=== PATIENT | female | born 1945 | race Caucasian/White ===

== ENCOUNTER 2021-07-21 16:11 | Inpatient (IN) ==
[2021-07-21 18:24] LABS: Basophils % 0.3 %; Eosinophils % 0.2 %; Hematocrit 34.3 % (35.3-44.9); Hemoglobin 10.6 g/dL (11.5-15.4); Immature Granulocytes % 0.6 % (0-4); Lymphocytes # 1.2 K/mcL (0.6-4.6); Lymphocytes % 8.8 %; Mean Corpuscular HGB Conc 30.9 g/dL (31.6-35.5); Mean Corpuscular Hemoglobin 31.2 pg (28.0-33.3); Mean Corpuscular Volume 100.9 fL (83.0-100.0); Mean Platelet Volume 10.1 fL (9.4-12.4); Monocytes % 7.4 %; Neutrophils # 11.6 K/mcL (1.6-8.9); Platelet Count 190 K/mcL (140-400); Red Cell Distribution Width 15.9 % (11.5-14.5); Segmented Neutrophils % 82.7 %
[2021-07-21 18:33] LABS: INR 1.1; Prothrombin Time 12.3 Seconds (9.4-12.1)
[2021-07-21 18:36] LABS: Activated Partial Thrombo Time 29.2 Seconds (26.0-36.0); Albumin/Globulin Ratio 1.4 (1.1-2.2); Bilirubin,Direct 0.1 mg/dL (0.0-0.2); Bilirubin,Indirect 0.5 mg/dL (0.0-1.0); Bilirubin,Total 0.6 mg/dL (0.3-1.0); Calcium 9.6 mg/dL (8.6-10.3); Globulin 2.8 g/dL (2.4-3.5); Potassium 6.2 mEq/L (3.5-5.1); Total Protein 6.8 g/dL (6.4-8.9)
[2021-07-21] MEDS ORDERED: Insulin Human Regular 10 UNIT in 0.9 % Sodium Chloride 10 ML IV ONE (20:09)
[2021-07-21] MEDS ORDERED: *HR* Dextrose 50 % in Water (Syg) 50 ML SYRINGE IVP ONE (20:09)
[2021-07-21] MEDS ORDERED: *HR* Etomidate 20 MG/10 ML AMPUL IVP ONE (20:27)
[2021-07-21] MEDS ORDERED: Morphine Sulfate 2 MG/ML SYRINGE IVP ONE (20:28)
[2021-07-21] MEDS ORDERED: 0.9 % Sodium Chloride 500 ML ONE (20:51)
[2021-07-21] MEDS ORDERED: *HR* Midazolam HCl 2 MG/2 ML VIAL IVP ONE ×2 (21:33→22:35)
[2021-07-21] MEDS ORDERED: *HR* Midazolam HCl 5 MG/5 ML VIAL IVP ONE ×2 (21:33→22:35)
[2021-07-21] MEDS ORDERED: Naloxone 0.4 MG/ML INJ IVP PRN ×2 (22:39→22:40)
[2021-07-21] MEDS ORDERED: Ondansetron ODT 4 MG TAB.RAPDIS SL PRN (22:40)
[2021-07-21] MEDS ORDERED: Melatonin 3 MG TABLET PO PRN (22:40)
[2021-07-21] MEDS ORDERED: Dextrose Gel 15 GM/37.5 ML TUBE PO PRN ×2 (23:38)
[2021-07-21] MEDS ORDERED: *HR* Dextrose 50 % in Water (Syg) 50 ML SYRINGE IVP PRN (23:38)
[2021-07-21] MEDS ORDERED: D5% in Water 1,000 ML IVC PRN (23:38)
[2021-07-21 23:41] LABS: Influenza A PCR Negative (Negative); Influenza B PCR Negative (Negative); Resp. Syncytial Virus PCR Negative (Negative)
[2021-07-21 23:43] LABS: SARS-CoV-2 by PCR (In House) Negative (Negative)
[2021-07-21] MEDS: *HR* OxyCODONE Immed Rel 5 MG TABLET PO PRN (23:49)
[2021-07-22] MEDS: Insulin LISPRO 300 UNITS/3 ML VIAL SUBQ SCH ×6 (00:03→20:45)
[2021-07-22] MEDS: *HR* HYDROcodone/Acet 5/325 mg TABLET PO PRN ×3 (01:24→20:32)
[2021-07-22] MEDS ORDERED: *HR* HYDROmorphone (PF) 1 MG/ML SYRINGE IVP ONE ×3 (02:58→22:38)
[2021-07-22] MEDS ORDERED: 0.9 % Sodium Chloride 1,000 ML IV ONE (03:10)
[2021-07-22] MEDS ORDERED: D5% in Water 1,000 ML IVC PRN (06:38)
[2021-07-22] MEDS ORDERED: Dextrose Gel 15 GM/37.5 ML TUBE PO PRN ×2 (06:38)
[2021-07-22] MEDS ORDERED: *HR* Dextrose 50 % in Water (Syg) 50 ML SYRINGE IVP PRN (06:38)
[2021-07-22 06:39] LABS: Basophils % 0.3 %; Eosinophils % 0.3 %; Hematocrit 29.2 % (35.3-44.9); Hemoglobin 9.2 g/dL (11.5-15.4); Immature Granulocytes % 0.5 % (0-4); Lymphocytes # 1.8 K/mcL (0.6-4.6); Lymphocytes % 15.7 %; Mean Corpuscular HGB Conc 31.5 g/dL (31.6-35.5); Mean Corpuscular Hemoglobin 32.2 pg (28.0-33.3); Mean Corpuscular Volume 102.1 fL (83.0-100.0); Mean Platelet Volume 10.2 fL (9.4-12.4); Monocytes # 1.1 K/mcL (0.0-1.3); Neutrophils # 8.4 K/mcL (1.6-8.9); Platelet Count 181 K/mcL (140-400); Red Blood Count 2.86 M/mcL (3.82-4.97); Segmented Neutrophils % 73.2 %; White Blood Count 11.4 K/mcL (4.3-11.1)
[2021-07-22 06:47] LABS: INR 1.1; Prothrombin Time 12.5 Seconds (9.4-12.1)
[2021-07-22 06:50] LABS: Activated Partial Thrombo Time 27.6 Seconds (26.0-36.0)
[2021-07-22 07:04] LABS: Calcium 8.7 mg/dL (8.6-10.3); Magnesium 1.9 mg/dL (1.6-2.6); Phosphorous 4.4 mg/dL (2.7-4.5); Potassium 5.7 mEq/L (3.5-5.1)
[2021-07-22] MEDS: *HR* OxyCODONE Immed Rel 5 MG TABLET PO PRN ×2 (08:02→17:32)
[2021-07-22] MEDS: allopurinoL 300 MG TABLET PO SCH (08:03)
[2021-07-22] MEDS: carvediloL 25 MG TABLET PO SCH ×2 (08:05→17:25)
[2021-07-22] MEDS ORDERED: Valsartan 160 MG TABLET PO SCH (09:00)
[2021-07-22] MEDS ORDERED: Spironolactone 25 MG TABLET PO SCH (09:00)
[2021-07-22] MEDS ORDERED: *HR* OxyCODONE Immed Rel 5 MG TABLET PO ONE (10:26)
[2021-07-22] MEDS ORDERED: 0.9 % Sodium Chloride 1,000 ML IVC SCH (15:15)
[2021-07-22 16:13] LABS: Calcium 8.8 mg/dL (8.6-10.3); Potassium 5.3 mEq/L (3.5-5.1)
[2021-07-22] MEDS: Acetaminophen 325 MG TABLET PO PRN (22:16)
[2021-07-23] MEDS: *HR* OxyCODONE Immed Rel 5 MG TABLET PO PRN ×4 (02:12→18:38)
[2021-07-23] MEDS: *HR* HYDROcodone/Acet 5/325 mg TABLET PO PRN ×4 (05:32→20:51)
[2021-07-23] MEDS: allopurinoL 300 MG TABLET PO SCH (08:35)
[2021-07-23] MEDS: carvediloL 25 MG TABLET PO SCH ×2 (08:35→16:49)
[2021-07-23] MEDS: Insulin LISPRO 300 UNITS/3 ML VIAL SUBQ SCH ×4 (08:36→19:18)
[2021-07-23 10:04] LABS: Hemoglobin 7.7 g/dL (11.5-15.4); Mean Corpuscular HGB Conc 30.8 g/dL (31.6-35.5); Mean Corpuscular Volume 103.7 fL (83.0-100.0); Platelet Count 143 K/mcL (140-400); Red Blood Count 2.41 M/mcL (3.82-4.97); Red Cell Distribution Width 15.9 % (11.5-14.5); White Blood Count 9.5 K/mcL (4.3-11.1)
[2021-07-23 10:22] LABS: Calcium 8.8 mg/dL (8.6-10.3); Potassium 4.4 mEq/L (3.5-5.1)
[2021-07-23 15:21] LABS: Hematocrit 24.2 % (35.3-44.9); Hemoglobin 7.4 g/dL (11.5-15.4)
[2021-07-23] MEDS: polyethylene glycoL 3350 17 GM POWD.PACK PO SCH (16:49)
[2021-07-23] MEDS ORDERED: Morphine Sulfate 2 MG/ML SYRINGE IVP ONE (22:20)
[2021-07-24] MEDS: *HR* OxyCODONE Immed Rel 5 MG TABLET PO PRN ×3 (00:55→20:31)
[2021-07-24] MEDS: *HR* HYDROcodone/Acet 5/325 mg TABLET PO PRN ×2 (04:01→23:12)
[2021-07-24] MEDS ORDERED: Morphine Sulfate 2 MG/ML SYRINGE IVP PRN (04:54)
[2021-07-24 05:33] LABS: Calcium 8.9 mg/dL (8.6-10.3); Potassium 4.7 mEq/L (3.5-5.1)
[2021-07-24] MEDS: Morphine Sulfate 2 MG/ML SYRINGE IVP PRN ×2 (06:32→22:04)
[2021-07-24] MEDS: polyethylene glycoL 3350 17 GM POWD.PACK PO SCH (08:07)
[2021-07-24] MEDS: carvediloL 25 MG TABLET PO SCH (08:07)
[2021-07-24] MEDS: allopurinoL 300 MG TABLET PO SCH (08:07)
[2021-07-24] MEDS: Insulin LISPRO 300 UNITS/3 ML VIAL SUBQ SCH ×4 (08:07→20:31)
[2021-07-24 08:52] LABS: Hematocrit 23.6 % (35.3-44.9); Hemoglobin 7.3 g/dL (11.5-15.4); Mean Corpuscular HGB Conc 30.9 g/dL (31.6-35.5); Mean Corpuscular Hemoglobin 32.3 pg (28.0-33.3); Mean Corpuscular Volume 104.4 fL (83.0-100.0); Mean Platelet Volume 9.8 fL (9.4-12.4); Platelet Count 141 K/mcL (140-400); Red Blood Count 2.26 M/mcL (3.82-4.97); Red Cell Distribution Width 15.8 % (11.5-14.5); White Blood Count 10.7 K/mcL (4.3-11.1)
[2021-07-24] MEDS ORDERED: Isovue-370 500 ML BOTTLE IVP ONE (11:31)
[2021-07-24] MEDS ORDERED: Ringers Solution, Lactated 500 ML IVC ONE (13:30)
[2021-07-24] MEDS ORDERED: cefTRIAXone 1,000 MG in 0.9 % Sodium Chloride Mini Bag 100 ML IVPB SCH (14:00)
[2021-07-24] MEDS: cefTRIAXone 1,000 MG in 0.9 % Sodium Chloride Mini Bag 100 ML IVPB SCH (14:08)
[2021-07-24 15:17] LABS: Adenovirus Not Detected (Not Detect); Bordetella Pertussis Not Detected (Not Detect); Chlamydophila pneumoniae Not Detected (Not Detect); Coronavirus 229E Not Detected (Not Detect); Coronavirus HKU1 Not Detected (Not Detect); Coronavirus NL63 Not Detected (Not Detect); Coronavirus OC43 Not Detected (Not Detect); Human Metapneumovirus Not Detected (Not Detect); Human Rhinovirus/Enterovirus Not Detected (Not Detect); Influenza A Subtype 2009 H1 Not Detected (Not Detect); Influenza B Not Detected (Not Detect); Mycoplasma pneumoniae Not Detected (Not Detect); Parainfluenza Virus 1 Not Detected (Not Detect); Parainfluenza Virus 2 Not Detected (Not Detect); Parainfluenza Virus 3 Not Detected (Not Detect); Parainfluenza Virus 4 Not Detected (Not Detect); Respiratory Syncytial Virus Not Detected (Not Detect); SARS-CoV-2 Not Detected (Not Detect)
[2021-07-24] MEDS ORDERED: 0.9 % Sodium Chloride 250 ML ONE (15:43)
[2021-07-24] MEDS: Acetaminophen 325 MG TABLET PO PRN (20:30)
[2021-07-24 20:40] LABS: Hematocrit 25.1 % (35.3-44.9)
[2021-07-25] MEDS: *HR* OxyCODONE Immed Rel 5 MG TABLET PO PRN ×3 (00:57→20:52)
[2021-07-25] MEDS ORDERED: Ipratropium/Albuterol Neb 3 ML IH PRN (02:55)
[2021-07-25] MEDS: Morphine Sulfate 2 MG/ML SYRINGE IVP PRN (03:10)
[2021-07-25 04:12] LABS: Hemoglobin 8.2 g/dL (11.5-15.4); Mean Corpuscular HGB Conc 31.5 g/dL (31.6-35.5); Mean Corpuscular Hemoglobin 31.9 pg (28.0-33.3); Mean Corpuscular Volume 101.2 fL (83.0-100.0); Mean Platelet Volume 10.2 fL (9.4-12.4); Platelet Count 155 K/mcL (140-400); Red Blood Count 2.57 M/mcL (3.82-4.97); Red Cell Distribution Width 16.9 % (11.5-14.5); White Blood Count 12.7 K/mcL (4.3-11.1)
[2021-07-25 04:24] LABS: VBG HCO3 17 mEq/L (21-27); VBG PCO2 38 mmHg (41-51); VBG PH 7.27 pH Units (7.32-7.42); VBG PO2 104 mmHg (25-50)
[2021-07-25 04:28] LABS: Albumin 3.4 g/dL (3.5-5.7); Albumin/Globulin Ratio 1.1 (1.1-2.2); Bilirubin,Direct 0.1 mg/dL (0.0-0.2); Bilirubin,Indirect 0.4 mg/dL (0.0-1.0); Bilirubin,Total 0.5 mg/dL (0.3-1.0); Calcium 9.1 mg/dL (8.6-10.3); Magnesium 1.8 mg/dL (1.6-2.6); Phosphorous 3.3 mg/dL (2.7-4.5); Potassium 4.7 mEq/L (3.5-5.1); Total Protein 6.4 g/dL (6.4-8.9)
[2021-07-25] MEDS: Insulin LISPRO 300 UNITS/3 ML VIAL SUBQ SCH ×3 (08:42→21:00)
[2021-07-25] MEDS: polyethylene glycoL 3350 17 GM POWD.PACK PO SCH (08:43)
[2021-07-25] MEDS: allopurinoL 300 MG TABLET PO SCH (08:43)
[2021-07-25] MEDS: cefTRIAXone 1,000 MG in 0.9 % Sodium Chloride Mini Bag 100 ML IVPB SCH (08:53)
[2021-07-25] MEDS: Acetaminophen 325 MG TABLET PO PRN (10:20)
[2021-07-25] MEDS ORDERED: Perflutren Lipid Microsphere 1.3 ML in 0.9 % Sodium Chloride 8.7 ML IVP PRN (11:25)
[2021-07-25] MEDS ORDERED: Furosemide 20 MG/2 ML VIAL IVP ONE (19:25)
[2021-07-26] MEDS: Insulin LISPRO 300 UNITS/3 ML VIAL SUBQ SCH ×5 (00:49→20:56)
[2021-07-26 00:50] LABS: ABG Base Excess -7 mEq/L (-2 to 3); ABG HCO3 18 mEq/L (21-27); ABG Oxygen Saturation 87 % (95-98); ABG PCO2 32 mmHg (35-45); ABG PH 7.35 pH Units (7.32-7.45); ABG PO2 55 mmHg (85-104); ABG TCO2 18 mEq/L (20-26)
[2021-07-26] MEDS: *HR* OxyCODONE Immed Rel 5 MG TABLET PO PRN ×4 (01:33→20:56)
[2021-07-26] MEDS: Acetaminophen 325 MG TABLET PO PRN (01:38)
[2021-07-26] MEDS: Ipratropium/Albuterol Neb 3 ML IH SCH ×5 (03:09→20:00)
[2021-07-26] MEDS: allopurinoL 300 MG TABLET PO SCH (08:35)
[2021-07-26] MEDS: cefTRIAXone 1,000 MG in 0.9 % Sodium Chloride Mini Bag 100 ML IVPB SCH (08:36)
[2021-07-26] MEDS: polyethylene glycoL 3350 17 GM POWD.PACK PO SCH (08:37)
[2021-07-26] MEDS: Budesonide/Formoterol 160/4.5 1 PUFF INH IH SCH ×2 (09:00→20:01)
[2021-07-26 10:58] LABS: ABG Base Excess -8 mEq/L (-2 to 3); ABG HCO3 17 mEq/L (21-27); ABG Oxygen Saturation 71 % (95-98); ABG PCO2 29 mmHg (35-45); ABG PH 7.36 pH Units (7.32-7.45); ABG PO2 38 mmHg (85-104); ABG TCO2 17 mEq/L (20-26)
[2021-07-26 11:37] LABS: Basophils % 0.3 %; Eosinophils # 0.1 K/mcL (0.0-0.6); Eosinophils % 0.5 %; Hematocrit 27.7 % (35.3-44.9); Hemoglobin 8.3 g/dL (11.5-15.4); Immature Granulocytes % 0.6 % (0-4); Lymphocytes # 0.7 K/mcL (0.6-4.6); Mean Corpuscular Hemoglobin 30.6 pg (28.0-33.3); Mean Corpuscular Volume 102.2 fL (83.0-100.0); Monocytes # 0.6 K/mcL (0.0-1.3); Monocytes % 6.2 %; Neutrophils # 8.9 K/mcL (1.6-8.9); Nucleated Red Blood Cells 0.9 /100 WBC (0); Platelet Count 192 K/mcL (140-400); Red Blood Count 2.71 M/mcL (3.82-4.97); Red Cell Distribution Width 16.6 % (11.5-14.5); Segmented Neutrophils % 85.4 %; White Blood Count 10.4 K/mcL (4.3-11.1)
[2021-07-26 12:58] LABS: Calcium 9.3 mg/dL (8.6-10.3); Potassium 4.4 mEq/L (3.5-5.1)
[2021-07-26] MEDS: Morphine Sulfate 2 MG/ML SYRINGE IVP PRN (22:36)
[2021-07-27] MEDS ORDERED: Acetaminophen IV 1,000 MG/100 ML BAG IVPB ONE (02:00)
[2021-07-27] MEDS: Ipratropium/Albuterol Neb 3 ML IH SCH ×4 (03:06→20:49)
[2021-07-27 05:13] LABS: Calcium 8.6 mg/dL (8.6-10.3); Potassium 4.9 mEq/L (3.5-5.1)
[2021-07-27 05:16] LABS: Basophils % 0.2 %; Eosinophils % 0.2 %; Hematocrit 24.2 % (35.3-44.9); Hemoglobin 7.6 g/dL (11.5-15.4); Immature Granulocytes % 1.2 % (0-4); Lymphocytes # 1.8 K/mcL (0.6-4.6); Lymphocytes % 19.8 %; Mean Corpuscular HGB Conc 31.4 g/dL (31.6-35.5); Mean Corpuscular Hemoglobin 31.1 pg (28.0-33.3); Mean Corpuscular Volume 99.2 fL (83.0-100.0); Mean Platelet Volume 10.3 fL (9.4-12.4); Monocytes # 2.1 K/mcL (0.0-1.3); Monocytes % 22.3 %; Neutrophils # 5.2 K/mcL (1.6-8.9); Nucleated Red Blood Cells 1.4 /100 WBC (0); Platelet Count 177 K/mcL (140-400); Red Blood Count 2.44 M/mcL (3.82-4.97); Red Cell Distribution Width 16.2 % (11.5-14.5); Segmented Neutrophils % 56.3 %; White Blood Count 9.2 K/mcL (4.3-11.1)
[2021-07-27] MEDS: Insulin LISPRO 300 UNITS/3 ML VIAL SUBQ SCH ×4 (08:31→20:08)
[2021-07-27] MEDS: polyethylene glycoL 3350 17 GM POWD.PACK PO SCH (08:32)
[2021-07-27] MEDS: Morphine Sulfate 2 MG/ML SYRINGE IVP PRN (08:35)
[2021-07-27] MEDS: cefTRIAXone 1,000 MG in 0.9 % Sodium Chloride Mini Bag 100 ML IVPB SCH (08:40)
[2021-07-27] MEDS: allopurinoL 300 MG TABLET PO SCH (08:56)
[2021-07-27] MEDS: *HR* OxyCODONE Immed Rel 5 MG TABLET PO PRN (09:32)
[2021-07-27] MEDS: Budesonide/Formoterol 160/4.5 1 PUFF INH IH SCH ×2 (10:46→20:49)
[2021-07-27] MEDS ORDERED: *HR* LORazepam 2 MG/ML VIAL IVP ONE (11:27)
[2021-07-27] MEDS ORDERED: Ringers Solution, Lactated 1,000 ML IVC SCH (13:30)
[2021-07-27] MEDS ORDERED: Heparin 1,000 UNITS/500 mL 500 ML ONE (13:42)
[2021-07-27] MEDS ORDERED: Vancomycin 1,000 MG VIAL ONE (14:00)
[2021-07-27] MEDS ORDERED: Albumin Human 5% 12.5 GM/250 ML IV.SOLN ONE ×2 (14:08→15:18)
[2021-07-27] MEDS ORDERED: *HR* Vasopressin 20 UNIT/ML VIAL ONE (14:08)
[2021-07-27] MEDS ORDERED: *HR* FentaNYL (PF) 100 MCG/2 ML VIAL ONE (14:09)
[2021-07-27] MEDS ORDERED: *HR* Propofol 200 MG/20 ML VIAL IVP ONE ×2 (14:09→16:55)
[2021-07-27] MEDS ORDERED: Lidocaine -MPF 2% 5 ML VIAL ONE (14:14)
[2021-07-27] MEDS ORDERED: Ondansetron 4 MG/2 ML VIAL ONE (14:14)
[2021-07-27] MEDS ORDERED: *HR* Rocuronium Bromide 50 MG/5 ML VIAL ONE ×2 (14:14→15:59)
[2021-07-27] MEDS ORDERED: *HR* Succinylcholine 200 MG/10 ML VIAL IVP ONE (14:14)
[2021-07-27] MEDS ORDERED: Lidocaine HCL 4 ML Topical Solution (Laryng-O-Jet Kit Sterile Pak) TP ONE (14:18)
[2021-07-27] MEDS ORDERED: TOTAL JOINT MIXTURE (100ML) INTRAART ONE (14:30)
[2021-07-27] MEDS ORDERED: Clindamycin 900 MG/50 ML 900 MG/50 ML IV.SOLN IVPB ONE (15:33)
[2021-07-27] MEDS ORDERED: *HR* FentaNYL (PF) 100 MCG/2 ML VIAL IVP ONE (17:55)
[2021-07-27] MEDS ORDERED: *HR* Midazolam HCl 2 MG/2 ML VIAL IVP PRN (18:03)
[2021-07-27] MEDS ORDERED: Artificial Tears SOLN 15 ML BOTTLE BOTH EYES PRN (18:03)
[2021-07-27] MEDS: predniSONE 5 MG TABLET PO SCH (18:04)
[2021-07-27] MEDS: FentaNYL (PF) 1,000 MCG/100 ML IV.SOLN IVC SCH (18:17)
[2021-07-27] MEDS: Dexmedetomidine HCl 400 MCG/100 ML MLS IVC SCH (18:18)
[2021-07-27] MEDS: Pantoprazole 40 MG VIAL IVP SCH (18:40)
[2021-07-27] MEDS: Aspirin 81 MG TAB.CHEW PO SCH (19:36)
[2021-07-27] MEDS: Artificial Tears SOLN 15 ML BOTTLE BOTH EYES SCH (20:03)
[2021-07-27] MEDS: Chlorhexidine Rinse 15 ML MOUTHWASH MM SCH (20:03)
[2021-07-27 20:19] LABS: Amorphous Sediment,Urine Few per hpf (None-Few); Bacteria,Urine Few per hpf (None-Few); Bilirubin,Urine Negative (Negative); Blood,Urine Large (Negative); Clarity,Urine Turbid (Clear); Color,Urine Yellow (Yellow); Glucose,Urine (UA) Normal (Normal); Hyaline Casts,Urine Few per lpf (None Seen); Ketones,Urine Negative (Negative); Leukocyte Esterase,Urine Negative (Negative); Mucus,Urine Few per lpf (None-Few); Nitrite,Urine Negative (Negative); PH,Urine 5.5 pH Units (5.0-8.0); Protein,Urine 70 mg/dL (Neg-Trace); RBC,Urine TNTC per hpf (0-3); Specific Gravity,Urine 1.012 (1.010-1.025); Squamous Epithelial Cell,Urine Few per hpf (None-Few); Urobilinogen,Urine Normal (Normal)
[2021-07-27 20:28] LABS: Protein/Creatinine Ratio,Urine 2.91 mg/mg (0.00-0.20); Sodium, Urine 33.1 mEq/L
[2021-07-27] MEDS: *HR* Heparin 5,000 UNIT/ML VIAL SQ SCH (21:59)
[2021-07-28] MEDS: Artificial Tears SOLN 15 ML BOTTLE BOTH EYES SCH ×7 (00:26→23:42)
[2021-07-28] MEDS: Clindamycin 900 MG/50 ML 900 MG/50 ML IV.SOLN IVPB SCH ×4 (00:55→23:41)
[2021-07-28] MEDS ORDERED: 0.9 % Sodium Chloride 500 ML IVC ONE (02:01)
[2021-07-28 02:22] LABS: Basophils % 0.2 %; Hematocrit 21.7 % (35.3-44.9); Hemoglobin 6.6 g/dL (11.5-15.4); Immature Granulocytes % 1.8 % (0-4); Lymphocytes # 0.3 K/mcL (0.6-4.6); Lymphocytes % 4.9 %; Mean Corpuscular HGB Conc 30.4 g/dL (31.6-35.5); Mean Corpuscular Hemoglobin 31.1 pg (28.0-33.3); Mean Corpuscular Volume 102.4 fL (83.0-100.0); Mean Platelet Volume 9.4 fL (9.4-12.4); Monocytes # 0.4 K/mcL (0.0-1.3); Monocytes % 6.8 %; Neutrophils # 4.7 K/mcL (1.6-8.9); Nucleated Red Blood Cells 0.9 /100 WBC (0); Platelet Count 160 K/mcL (140-400); Red Blood Count 2.12 M/mcL (3.82-4.97); Red Cell Distribution Width 15.9 % (11.5-14.5); Segmented Neutrophils % 86.3 %; White Blood Count 5.5 K/mcL (4.3-11.1)
[2021-07-28 02:41] LABS: Albumin 2.9 g/dL (3.5-5.7); Albumin/Globulin Ratio 1.1 (1.1-2.2); Bilirubin,Total 0.2 mg/dL (0.3-1.0); Calcium 7.9 mg/dL (8.6-10.3); Globulin 2.6 g/dL (2.4-3.5); Potassium 5.9 mEq/L (3.5-5.1); Total Protein 5.5 g/dL (6.4-8.9)
[2021-07-28 02:44] LABS: Creatine Kinase 371 Units/L (30-223); Iron < 10 mcg/dL (50-170); Magnesium 2.3 mg/dL (1.6-2.6); Phosphorous 7.6 mg/dL (2.7-4.5); Transferrin 136 mg/dL (203-362); Uric Acid 6.4 mg/dL (2.3-7.6)
[2021-07-28] MEDS: Ipratropium/Albuterol Neb 3 ML IH SCH ×4 (04:08→21:04)
[2021-07-28 04:33] LABS: ABG Base Excess -8 mEq/L (-2 to 3); ABG HCO3 21 mEq/L (21-27); ABG Oxygen Saturation 100 % (95-98); ABG PCO2 59 mmHg (35-45); ABG PH 7.15 pH Units (7.32-7.45); ABG PO2 258 mmHg (85-104); ABG TCO2 22 mEq/L (20-26); Blood Gas VT 420 cc
[2021-07-28] MEDS ORDERED: Calcium Gluconate 1gm/50mL 1 GM/50 ML BAG IVPB ONE (04:34)
[2021-07-28] MEDS ORDERED: Insulin Human Regular 10 UNIT in 0.9 % Sodium Chloride 10 ML IV ONE (04:35)
[2021-07-28] MEDS ORDERED: *HR* Dextrose 50 % in Water (Syg) 50 ML SYRINGE IVP ONE (04:36)
[2021-07-28] MEDS ORDERED: 0.9 % Sodium Chloride 250 ML IVC SCH (04:45)
[2021-07-28] MEDS: *HR* Heparin 5,000 UNIT/ML VIAL SQ SCH ×3 (04:52→20:15)
[2021-07-28] MEDS ORDERED: D5% in Water 1,000 ML IVC PRN (06:33)
[2021-07-28] MEDS ORDERED: Dextrose Gel 15 GM/37.5 ML TUBE PO PRN ×2 (06:33)
[2021-07-28] MEDS ORDERED: *HR* Dextrose 50 % in Water (Syg) 50 ML SYRINGE IVP PRN (06:33)
[2021-07-28] MEDS: Aspirin 81 MG TAB.CHEW PO SCH ×2 (08:04→20:16)
[2021-07-28] MEDS: Pantoprazole 40 MG VIAL IVP SCH (08:05)
[2021-07-28] MEDS: Chlorhexidine Rinse 15 ML MOUTHWASH MM SCH ×2 (08:05→20:15)
[2021-07-28] MEDS: predniSONE 5 MG TABLET PO SCH (08:05)
[2021-07-28] MEDS: Budesonide/Formoterol 160/4.5 1 PUFF INH IH SCH ×2 (08:05→21:02)
[2021-07-28] MEDS: polyethylene glycoL 3350 17 GM POWD.PACK PO SCH (08:05)
[2021-07-28] MEDS: cefTRIAXone 1,000 MG in 0.9 % Sodium Chloride Mini Bag 100 ML IVPB SCH (08:06)
[2021-07-28] MEDS: allopurinoL 300 MG TABLET PO SCH (08:07)
[2021-07-28] MEDS: Norepinephrine 4 MG/254 ML IV.SOLN IVC SCH ×2 (08:50→22:55)
[2021-07-28] MEDS: FentaNYL (PF) 1,000 MCG/100 ML IV.SOLN IVC SCH (09:15)
[2021-07-28 09:36] LABS: Calcium 8.2 mg/dL (8.6-10.3); Potassium 5.4 mEq/L (3.5-5.1)
[2021-07-28] MEDS: Dexmedetomidine HCl 400 MCG/100 ML MLS IVC SCH (10:11)
[2021-07-28] MEDS ORDERED: Sodium Bicarbonate 75 MEQ in 0.45 % Sodium Chloride 1,000 ML IVC SCH (11:15)
[2021-07-28] MEDS: Insulin LISPRO 300 UNITS/3 ML VIAL SUBQ SCH ×3 (12:15→23:57)
[2021-07-28] MEDS ORDERED: Furosemide 20 MG/2 ML VIAL IVP ONE (12:27)
[2021-07-28 12:44] LABS: VBG Ionized Calcium 1.14 mmol/L (1.15-1.35)
[2021-07-28] MEDS: *HR* OxyCODONE Immed Rel 5 MG TABLET PO PRN ×2 (14:23→20:15)
[2021-07-28 19:10] LABS: Hematocrit 23.5 % (35.3-44.9); Hemoglobin 7.2 g/dL (11.5-15.4)
[2021-07-28 19:12] LABS: VBG Ionized Calcium 1.17 mmol/L (1.15-1.35)
[2021-07-28 19:35] LABS: Albumin 2.9 g/dL (3.5-5.7); Albumin/Globulin Ratio 1.1 (1.1-2.2); Bilirubin,Total 0.3 mg/dL (0.3-1.0); Calcium 8.3 mg/dL (8.6-10.3); Globulin 2.6 g/dL (2.4-3.5); Potassium 4.7 mEq/L (3.5-5.1); Total Protein 5.5 g/dL (6.4-8.9)
[2021-07-28] MEDS: Phenylephrine 10 MG in 0.9 % Sodium Chloride 250 ML IVC SCH ×2 (19:57→22:59)
[2021-07-28] MEDS ORDERED: *HR* Metoprolol 5 MG/5 ML VIAL IVP ONE (20:41)
[2021-07-28] MEDS: Phenylephrine 50 MG in 0.9 % Sodium Chloride 250 ML IVC SCH (23:40)
[2021-07-28] MEDS: Morphine Sulfate 2 MG/ML SYRINGE IVP PRN (23:51)
[2021-07-29] MEDS: *HR* OxyCODONE Immed Rel 5 MG TABLET PO PRN ×4 (03:27→18:57)
[2021-07-29] MEDS: *HR* Metoprolol 5 MG/5 ML VIAL IVP PRN (03:27)
[2021-07-29] MEDS: Artificial Tears SOLN 15 ML BOTTLE BOTH EYES SCH ×3 (03:28→11:46)
[2021-07-29 03:58] LABS: VBG Ionized Calcium 1.18 mmol/L (1.15-1.35)
[2021-07-29] MEDS: Ipratropium/Albuterol Neb 3 ML IH SCH ×4 (04:11→19:48)
[2021-07-29 04:16] LABS: Basophils % 0.3 %; Eosinophils % 0.5 %; Hemoglobin 7.4 g/dL (11.5-15.4); Immature Granulocytes % 1.9 % (0-4); Lymphocytes # 1.1 K/mcL (0.6-4.6); Lymphocytes % 13.5 %; Mean Corpuscular HGB Conc 32.2 g/dL (31.6-35.5); Mean Corpuscular Hemoglobin 31.4 pg (28.0-33.3); Mean Corpuscular Volume 97.5 fL (83.0-100.0); Mean Platelet Volume 9.8 fL (9.4-12.4); Monocytes % 12.3 %; Neutrophils # 5.6 K/mcL (1.6-8.9); Nucleated Red Blood Cells 1.5 /100 WBC (0); Platelet Count 214 K/mcL (140-400); Red Blood Count 2.36 M/mcL (3.82-4.97); Red Cell Distribution Width 18.5 % (11.5-14.5); Segmented Neutrophils % 71.5 %; White Blood Count 7.8 K/mcL (4.3-11.1)
[2021-07-29 04:23] LABS: Activated Partial Thrombo Time 29.3 Seconds (26.0-36.0)
[2021-07-29 04:24] LABS: INR 1.1; Prothrombin Time 12.3 Seconds (9.4-12.1)
[2021-07-29 04:28] LABS: Albumin 2.9 g/dL (3.5-5.7); Albumin/Globulin Ratio 1.1 (1.1-2.2); Bilirubin,Total 0.3 mg/dL (0.3-1.0); Calcium 8.1 mg/dL (8.6-10.3); Globulin 2.7 g/dL (2.4-3.5); Magnesium 1.7 mg/dL (1.6-2.6); Potassium 4.3 mEq/L (3.5-5.1); Total Protein 5.6 g/dL (6.4-8.9)
[2021-07-29] MEDS ORDERED: 0.9 % Sodium Chloride 500 ML IVC ONE (04:57)
[2021-07-29] MEDS: Insulin LISPRO 300 UNITS/3 ML VIAL SUBQ SCH ×4 (05:05→19:34)
[2021-07-29] MEDS: *HR* Heparin 5,000 UNIT/ML VIAL SQ SCH ×2 (05:05→15:38)
[2021-07-29] MEDS: Phenylephrine 50 MG in 0.9 % Sodium Chloride 250 ML IVC SCH (06:00)
[2021-07-29] MEDS: Pantoprazole 40 MG VIAL IVP SCH (08:04)
[2021-07-29] MEDS: predniSONE 5 MG TABLET PO SCH (08:05)
[2021-07-29] MEDS: allopurinoL 300 MG TABLET PO SCH (08:05)
[2021-07-29] MEDS: Aspirin 81 MG TAB.CHEW PO SCH ×2 (08:05→19:34)
[2021-07-29] MEDS: Clindamycin 900 MG/50 ML 900 MG/50 ML IV.SOLN IVPB SCH ×2 (08:08→15:38)
[2021-07-29] MEDS: polyethylene glycoL 3350 17 GM POWD.PACK PO SCH (08:08)
[2021-07-29] MEDS: cefTRIAXone 1,000 MG in 0.9 % Sodium Chloride Mini Bag 100 ML IVPB SCH (08:10)
[2021-07-29] MEDS: Chlorhexidine Rinse 15 ML MOUTHWASH MM SCH ×2 (08:12→19:26)
[2021-07-29] MEDS: Budesonide/Formoterol 160/4.5 1 PUFF INH IH SCH ×2 (09:20→19:50)
[2021-07-29] MEDS: *HR* Digoxin 0.5 MG/2 ML AMPUL IVP SCH ×2 (10:16→15:37)
[2021-07-29] MEDS: Dexmedetomidine HCl 400 MCG/100 ML MLS IVC SCH (17:53)
[2021-07-29] MEDS: Norepinephrine 4 MG/254 ML IV.SOLN IVC SCH (17:54)
[2021-07-29] MEDS ORDERED: Furosemide 20 MG/2 ML VIAL IVP ONE (19:49)
[2021-07-29 20:00] LABS: ABG Base Excess -1 mEq/L (-2 to 3); ABG HCO3 24 mEq/L (21-27); ABG Oxygen Saturation 82 % (95-98); ABG PCO2 43 mmHg (35-45); ABG PH 7.36 pH Units (7.32-7.45); ABG PO2 48 mmHg (85-104); ABG TCO2 26 mEq/L (20-26)
[2021-07-29] MEDS: Morphine Sulfate 2 MG/ML SYRINGE IVP PRN (22:21)
[2021-07-30] MEDS: *HR* OxyCODONE Immed Rel 5 MG TABLET PO PRN ×3 (00:35→16:20)
[2021-07-30] MEDS: *HR* Heparin 5,000 UNIT/ML VIAL SQ SCH ×4 (00:36→23:56)
[2021-07-30] MEDS: Clindamycin 900 MG/50 ML 900 MG/50 ML IV.SOLN IVPB SCH ×3 (00:39→16:21)
[2021-07-30] MEDS: Ipratropium/Albuterol Neb 3 ML IH SCH ×4 (03:44→19:55)
[2021-07-30 04:02] LABS: Basophils % 0.4 %; Eosinophils # 0.1 K/mcL (0.0-0.6); Eosinophils % 1.3 %; Hemoglobin 7.1 g/dL (11.5-15.4); Immature Granulocytes % 4.7 % (0-4); Lymphocytes # 0.7 K/mcL (0.6-4.6); Lymphocytes % 10.4 %; Mean Corpuscular HGB Conc 29.6 g/dL (31.6-35.5); Mean Corpuscular Hemoglobin 29.3 pg (28.0-33.3); Mean Corpuscular Volume 99.2 fL (83.0-100.0); Mean Platelet Volume 9.8 fL (9.4-12.4); Monocytes # 0.4 K/mcL (0.0-1.3); Monocytes % 6.5 %; Neutrophils # 5.2 K/mcL (1.6-8.9); Platelet Count 191 K/mcL (140-400); Red Blood Count 2.42 M/mcL (3.82-4.97); Red Cell Distribution Width 18.5 % (11.5-14.5); Segmented Neutrophils % 76.7 %; White Blood Count 6.8 K/mcL (4.3-11.1)
[2021-07-30 04:11] LABS: Alanine Aminotransferase 28 Units/L (7-52); Albumin/Globulin Ratio 1.2 (1.1-2.2); Alkaline Phosphatase 67 Units/L (34-104); Aspartate Amino Transferase 49 Units/L (13-39); BUN/Creatinine Ratio 41 (6-26); Bilirubin,Total 0.3 mg/dL (0.3-1.0); Blood Urea Nitrogen 39 mg/dL (8-23); Calcium 8.3 mg/dL (8.6-10.3); Carbon Dioxide 25 mEq/L (23-29); Chloride 110 mEq/L (98-107); Globulin 2.6 g/dL (2.4-3.5); Glucose 115 mg/dL (70-105); Osmolality,Calculated 304 (280-300); Potassium 4.4 mEq/L (3.5-5.1); Sodium 142 mEq/L (136-145); Total Protein 5.6 g/dL (6.4-8.9); eGFR For African Americans > 60 (> 60); eGFR For Non-African Americans 56 (> 60)
[2021-07-30] MEDS: Morphine Sulfate 2 MG/ML SYRINGE IVP PRN ×2 (05:14→22:11)
[2021-07-30 05:42] LABS: ABG Base Excess -1 mEq/L (-2 to 3); ABG HCO3 25 mEq/L (21-27); ABG Oxygen Saturation 95 % (95-98); ABG PCO2 50 mmHg (35-45); ABG PH 7.31 pH Units (7.32-7.45); ABG PO2 84 mmHg (85-104); ABG TCO2 27 mEq/L (20-26); Blood Gas Modality CPAP
[2021-07-30 07:24] LABS: Lambda Qnt Free Light Chains 26.13 mg/L (5.71-26.30)
[2021-07-30] MEDS: Pantoprazole 40 MG VIAL IVP SCH (09:07)
[2021-07-30] MEDS: Chlorhexidine Rinse 15 ML MOUTHWASH MM SCH ×2 (09:07→19:32)
[2021-07-30] MEDS: cefTRIAXone 1,000 MG in 0.9 % Sodium Chloride Mini Bag 100 ML IVPB SCH (09:08)
[2021-07-30] MEDS: Aspirin 81 MG TAB.CHEW PO SCH ×2 (09:10→19:45)
[2021-07-30] MEDS: predniSONE 5 MG TABLET PO SCH (09:10)
[2021-07-30] MEDS: allopurinoL 300 MG TABLET PO SCH (09:11)
[2021-07-30] MEDS: polyethylene glycoL 3350 17 GM POWD.PACK PO SCH (09:11)
[2021-07-30] MEDS: Insulin LISPRO 300 UNITS/3 ML VIAL SUBQ SCH ×4 (09:13→19:33)
[2021-07-30] MEDS: carvediloL 6.25 MG TABLET PO SCH ×2 (09:19→16:20)
[2021-07-30] MEDS: Budesonide/Formoterol 160/4.5 1 PUFF INH IH SCH ×2 (09:31→19:58)
[2021-07-30 10:44] LABS: Kappa Qnt Free Light Chains 36.93 mg/L (3.30-19.40)
[2021-07-30 14:38] LABS: VBG Ionized Calcium 1.25 mmol/L (1.15-1.35)
[2021-07-30 14:49] LABS: BUN/Creatinine Ratio 38 (6-26); Blood Urea Nitrogen 35 mg/dL (8-23); Calcium 8.6 mg/dL (8.6-10.3); Carbon Dioxide 25 mEq/L (23-29); Chloride 110 mEq/L (98-107); Glucose 128 mg/dL (70-105); Magnesium 2.1 mg/dL (1.6-2.6); Osmolality,Calculated 306 (280-300); Potassium 4.9 mEq/L (3.5-5.1); Sodium 143 mEq/L (136-145); eGFR For African Americans > 60 (> 60); eGFR For Non-African Americans 59 (> 60)
[2021-07-30] MEDS ORDERED: Furosemide 20 MG/2 ML VIAL IVP ONE (16:14)
[2021-07-30] MEDS: Phenylephrine 50 MG in 0.9 % Sodium Chloride 250 ML IVC SCH (23:45)
[2021-07-31] MEDS: Clindamycin 900 MG/50 ML 900 MG/50 ML IV.SOLN IVPB SCH ×3 (00:31→17:17)
[2021-07-31] MEDS: *HR* HYDROcodone/Acet 5/325 mg TABLET PO PRN ×2 (01:56→17:17)
[2021-07-31] MEDS: Ipratropium/Albuterol Neb 3 ML IH SCH ×4 (03:53→20:02)
[2021-07-31] MEDS: Morphine Sulfate 2 MG/ML SYRINGE IVP PRN (04:55)
[2021-07-31] MEDS: *HR* Heparin 5,000 UNIT/ML VIAL SQ SCH ×3 (06:13→21:25)
[2021-07-31] MEDS: cefTRIAXone 1,000 MG in 0.9 % Sodium Chloride Mini Bag 100 ML IVPB SCH (07:48)
[2021-07-31] MEDS: Pantoprazole 40 MG VIAL IVP SCH (07:48)
[2021-07-31] MEDS: Chlorhexidine Rinse 15 ML MOUTHWASH MM SCH ×2 (07:48→21:25)
[2021-07-31] MEDS: Aspirin 81 MG TAB.CHEW PO SCH ×2 (07:52→21:25)
[2021-07-31] MEDS: allopurinoL 300 MG TABLET PO SCH (07:52)
[2021-07-31] MEDS: carvediloL 6.25 MG TABLET PO SCH ×3 (07:52→17:17)
[2021-07-31] MEDS: *HR* OxyCODONE Immed Rel 5 MG TABLET PO PRN (07:53)
[2021-07-31] MEDS: Insulin LISPRO 300 UNITS/3 ML VIAL SUBQ SCH ×4 (08:26→21:24)
[2021-07-31] MEDS: polyethylene glycoL 3350 17 GM POWD.PACK PO SCH (08:27)
[2021-07-31 09:48] LABS: Hematocrit 22.2 % (35.3-44.9); Hemoglobin 6.8 g/dL (11.5-15.4); Mean Corpuscular HGB Conc 30.6 g/dL (31.6-35.5); Mean Corpuscular Hemoglobin 30.8 pg (28.0-33.3); Mean Corpuscular Volume 100.5 fL (83.0-100.0); Nucleated Red Blood Cells 1.6 /100 WBC (0); Platelet Count 215 K/mcL (140-400); Red Blood Count 2.21 M/mcL (3.82-4.97); Red Cell Distribution Width 18.3 % (11.5-14.5); White Blood Count 9.4 K/mcL (4.3-11.1)
[2021-07-31 09:50] LABS: VBG Ionized Calcium 1.25 mmol/L (1.15-1.35)
[2021-07-31] MEDS: Budesonide/Formoterol 160/4.5 1 PUFF INH IH SCH ×2 (10:01→20:01)
[2021-07-31 10:08] LABS: Alanine Aminotransferase 24 Units/L (7-52); Albumin 2.8 g/dL (3.5-5.7); Alkaline Phosphatase 61 Units/L (34-104); Aspartate Amino Transferase 32 Units/L (13-39); BUN/Creatinine Ratio 33 (6-26); Bilirubin,Total 0.3 mg/dL (0.3-1.0); Blood Urea Nitrogen 34 mg/dL (8-23); Calcium 8.6 mg/dL (8.6-10.3); Carbon Dioxide 26 mEq/L (23-29); Chloride 111 mEq/L (98-107); Globulin 2.9 g/dL (2.4-3.5); Glucose 159 mg/dL (70-105); Osmolality,Calculated 303 (280-300); Phosphorous 3.3 mg/dL (2.7-4.5); Potassium 4.2 mEq/L (3.5-5.1); Sodium 141 mEq/L (136-145); Total Protein 5.7 g/dL (6.4-8.9); eGFR For African Americans > 60 (> 60); eGFR For Non-African Americans 52 (> 60)
[2021-07-31] MEDS ORDERED: Furosemide 20 MG/2 ML VIAL IVP ONE (10:29)
[2021-07-31 10:49] LABS: Lymphocytes # 0.8 K/mcL (0.6-4.6); Monocytes # 0.2 K/mcL (0.0-1.3); Neutrophils # 8.5 K/mcL (1.6-8.9)
[2021-07-31 10:50] LABS: Anisocytosis 1+ (Not Present); Platelet Estimate Normal (Normal)
[2021-07-31] MEDS ORDERED: 0.9 % Sodium Chloride 250 ML ONE (10:52)
[2021-07-31 21:22] LABS: Basophils # 0.1 K/mcL (0.0-0.2); Basophils % 0.8 %; Eosinophils % 0.4 %; Immature Granulocytes % 8.2 % (0-4); Lymphocytes # 0.6 K/mcL (0.6-4.6); Mean Corpuscular HGB Conc 30.8 g/dL (31.6-35.5); Mean Corpuscular Volume 97.4 fL (83.0-100.0); Mean Platelet Volume 10.3 fL (9.4-12.4); Monocytes # 0.3 K/mcL (0.0-1.3); Monocytes % 3.2 %; Neutrophils # 7.9 K/mcL (1.6-8.9); Nucleated Red Blood Cells 2.4 /100 WBC (0); Platelet Count 236 K/mcL (140-400); Red Blood Count 2.67 M/mcL (3.82-4.97); Red Cell Distribution Width 18.4 % (11.5-14.5); Segmented Neutrophils % 81.4 %; White Blood Count 9.7 K/mcL (4.3-11.1)
[2021-07-31] MEDS: Phenylephrine 50 MG in 0.9 % Sodium Chloride 250 ML IVC SCH (21:43)
[2021-08-01] MEDS: Clindamycin 900 MG/50 ML 900 MG/50 ML IV.SOLN IVPB SCH ×2 (00:36→08:58)
[2021-08-01] MEDS: *HR* HYDROcodone/Acet 5/325 mg TABLET PO PRN (00:43)
[2021-08-01] MEDS ORDERED: 0.9 % Sodium Chloride 250 ML IVC PRN (02:22)
[2021-08-01] MEDS: Ipratropium/Albuterol Neb 3 ML IH SCH ×4 (03:55→19:54)
[2021-08-01 03:57] LABS: Basophils % 0.3 %; Eosinophils % 0.4 %; Hematocrit 26.2 % (35.3-44.9); Immature Granulocytes % 8.6 % (0-4); Lymphocytes # 0.6 K/mcL (0.6-4.6); Lymphocytes % 5.7 %; Mean Corpuscular HGB Conc 30.5 g/dL (31.6-35.5); Mean Corpuscular Hemoglobin 29.7 pg (28.0-33.3); Mean Corpuscular Volume 97.4 fL (83.0-100.0); Mean Platelet Volume 10.5 fL (9.4-12.4); Monocytes # 0.3 K/mcL (0.0-1.3); Monocytes % 3.4 %; Neutrophils # 8.1 K/mcL (1.6-8.9); Nucleated Red Blood Cells 2.5 /100 WBC (0); Platelet Count 248 K/mcL (140-400); Red Blood Count 2.69 M/mcL (3.82-4.97); Red Cell Distribution Width 18.5 % (11.5-14.5); Segmented Neutrophils % 81.6 %; White Blood Count 9.9 K/mcL (4.3-11.1)
[2021-08-01 04:18] LABS: BUN/Creatinine Ratio 39 (6-26); Blood Urea Nitrogen 35 mg/dL (8-23); Carbon Dioxide 25 mEq/L (23-29); Chloride 111 mEq/L (98-107); Glucose 123 mg/dL (70-105); Osmolality,Calculated 305 (280-300); Phosphorous 3.2 mg/dL (2.7-4.5); Potassium 4.2 mEq/L (3.5-5.1); Sodium 143 mEq/L (136-145); eGFR For African Americans > 60 (> 60); eGFR For Non-African Americans > 60 (> 60)
[2021-08-01 04:41] LABS: Anisocytosis 1+ (Not Present); Platelet Estimate Normal (Normal)
[2021-08-01] MEDS: *HR* OxyCODONE Immed Rel 5 MG TABLET PO PRN ×5 (04:52→22:41)
[2021-08-01] MEDS: *HR* Heparin 5,000 UNIT/ML VIAL SQ SCH ×3 (04:52→21:24)
[2021-08-01] MEDS: Budesonide/Formoterol 160/4.5 1 PUFF INH IH SCH ×2 (07:38→19:54)
[2021-08-01] MEDS: Insulin LISPRO 300 UNITS/3 ML VIAL SUBQ SCH ×4 (08:59→19:34)
[2021-08-01] MEDS: allopurinoL 300 MG TABLET PO SCH (08:59)
[2021-08-01] MEDS: Aspirin 81 MG TAB.CHEW PO SCH ×2 (08:59→19:36)
[2021-08-01] MEDS: cefTRIAXone 1,000 MG in 0.9 % Sodium Chloride Mini Bag 100 ML IVPB SCH (08:59)
[2021-08-01] MEDS: Pantoprazole 40 MG VIAL IVP SCH (09:00)
[2021-08-01] MEDS: polyethylene glycoL 3350 17 GM POWD.PACK PO SCH (09:01)
[2021-08-01] MEDS: Chlorhexidine Rinse 15 ML MOUTHWASH MM SCH ×2 (09:01→19:34)
[2021-08-01] MEDS: carvediloL 6.25 MG TABLET PO SCH ×3 (09:04→19:15)
[2021-08-01] MEDS ORDERED: Ondansetron 4 MG/2 ML VIAL IVP PRN (13:05)
[2021-08-01] MEDS: levoFLOXacin 750 MG/150 ML 750 MG/150 ML BAG IVPB SCH (14:54)
[2021-08-01] MEDS ORDERED: carvediloL 6.25 MG TABLET PO SCH (17:33)
[2021-08-01] MEDS: MethylPREDNISolone 40 MG/ML VIAL IVP SCH (23:24)
[2021-08-02] MEDS: *HR* OxyCODONE Immed Rel 5 MG TABLET PO PRN ×5 (02:46→21:37)
[2021-08-02] MEDS: Ipratropium/Albuterol Neb 3 ML IH SCH ×4 (03:09→20:24)
[2021-08-02 03:49] LABS: VBG Ionized Calcium 1.27 mmol/L (1.15-1.35)
[2021-08-02 03:51] LABS: Basophils # 0.1 K/mcL (0.0-0.2); Basophils % 0.9 %; Eosinophils % 0.1 %; Hematocrit 27.1 % (35.3-44.9); Hemoglobin 8.1 g/dL (11.5-15.4); Immature Granulocytes % 8.2 % (0-4); Lymphocytes # 0.4 K/mcL (0.6-4.6); Lymphocytes % 3.7 %; Mean Corpuscular HGB Conc 29.9 g/dL (31.6-35.5); Mean Corpuscular Hemoglobin 29.1 pg (28.0-33.3); Mean Corpuscular Volume 97.5 fL (83.0-100.0); Mean Platelet Volume 10.6 fL (9.4-12.4); Monocytes # 0.2 K/mcL (0.0-1.3); Monocytes % 1.9 %; Nucleated Red Blood Cells 1.4 /100 WBC (0); Platelet Count 267 K/mcL (140-400); Red Blood Count 2.78 M/mcL (3.82-4.97); Segmented Neutrophils % 85.2 %; White Blood Count 9.7 K/mcL (4.3-11.1)
[2021-08-02 03:55] LABS: Neutrophils # 8.3 K/mcL (1.6-8.9)
[2021-08-02 04:26] LABS: BUN/Creatinine Ratio 44 (6-26); Blood Urea Nitrogen 34 mg/dL (8-23); Calcium 9.2 mg/dL (8.6-10.3); Carbon Dioxide 23 mEq/L (23-29); Chloride 109 mEq/L (98-107); Glucose 137 mg/dL (70-105); Magnesium 1.9 mg/dL (1.6-2.6); Osmolality,Calculated 304 (280-300); Phosphorous 3.8 mg/dL (2.7-4.5); Potassium 4.6 mEq/L (3.5-5.1); Sodium 142 mEq/L (136-145); eGFR For African Americans > 60 (> 60); eGFR For Non-African Americans > 60 (> 60)
[2021-08-02 04:38] LABS: Anisocytosis 1+ (Not Present); Platelet Estimate Normal (Normal)
[2021-08-02] MEDS: *HR* Metoprolol 5 MG/5 ML VIAL IVP PRN (05:03)
[2021-08-02] MEDS: *HR* Heparin 5,000 UNIT/ML VIAL SQ SCH ×3 (05:03→21:37)
[2021-08-02] MEDS: carvediloL 25 MG TABLET PO SCH ×2 (08:55→17:34)
[2021-08-02] MEDS: MethylPREDNISolone 40 MG/ML VIAL IVP SCH ×3 (08:55→23:24)
[2021-08-02] MEDS: allopurinoL 300 MG TABLET PO SCH (08:55)
[2021-08-02] MEDS: Aspirin 81 MG TAB.CHEW PO SCH ×2 (08:55→19:39)
[2021-08-02] MEDS: polyethylene glycoL 3350 17 GM POWD.PACK PO SCH (08:56)
[2021-08-02] MEDS: Insulin LISPRO 300 UNITS/3 ML VIAL SUBQ SCH ×4 (08:56→20:09)
[2021-08-02] MEDS: Chlorhexidine Rinse 15 ML MOUTHWASH MM SCH ×2 (08:56→19:26)
[2021-08-02] MEDS: Pantoprazole 40 MG VIAL IVP SCH (08:56)
[2021-08-02] MEDS ORDERED: Furosemide 20 MG/2 ML VIAL IVP ONE ×2 (09:33→09:34)
[2021-08-02] MEDS: Budesonide/Formoterol 160/4.5 1 PUFF INH IH SCH ×2 (09:57→20:24)
[2021-08-02 10:09] LABS: Alpha 2 Globulin (PEP) 1.07 g/dL (0.48-1.05)
[2021-08-02 12:26] LABS: IFE Reflexed IFE Done
[2021-08-02 12:27] LABS: Immunoglobulin A 125 mg/dL (68-408); Immunoglobulin G 585 mg/dL (768-1632); Immunoglobulin M 20 mg/dL (35-263)
[2021-08-02] MEDS: levoFLOXacin 750 MG/150 ML 750 MG/150 ML BAG IVPB SCH (13:25)
[2021-08-02] MEDS: Morphine Sulfate 2 MG/ML SYRINGE IVP PRN (23:22)
[2021-08-03] MEDS ORDERED: 0.9 % Sodium Chloride 1,000 ML ONE (03:23)
[2021-08-03] MEDS: Ipratropium/Albuterol Neb 3 ML IH SCH ×4 (03:44→20:18)
[2021-08-03 04:01] LABS: Hematocrit 28.2 % (35.3-44.9); Hemoglobin 8.5 g/dL (11.5-15.4); Mean Corpuscular HGB Conc 30.1 g/dL (31.6-35.5); Mean Corpuscular Hemoglobin 29.2 pg (28.0-33.3); Mean Corpuscular Volume 96.9 fL (83.0-100.0); Mean Platelet Volume 10.8 fL (9.4-12.4); Platelet Count 316 K/mcL (140-400); Red Blood Count 2.91 M/mcL (3.82-4.97); Red Cell Distribution Width 17.4 % (11.5-14.5)
[2021-08-03] MEDS: *HR* OxyCODONE Immed Rel 5 MG TABLET PO PRN ×4 (04:07→17:02)
[2021-08-03 04:08] LABS: BUN/Creatinine Ratio 52 (6-26); Blood Urea Nitrogen 44 mg/dL (8-23); Calcium 9.1 mg/dL (8.6-10.3); Carbon Dioxide 24 mEq/L (23-29); Chloride 108 mEq/L (98-107); Glucose 156 mg/dL (70-105); Magnesium 1.9 mg/dL (1.6-2.6); Osmolality,Calculated 306 (280-300); Potassium 4.2 mEq/L (3.5-5.1); Sodium 141 mEq/L (136-145); eGFR For African Americans > 60 (> 60); eGFR For Non-African Americans > 60 (> 60)
[2021-08-03] MEDS: *HR* Heparin 5,000 UNIT/ML VIAL SQ SCH ×3 (05:19→22:27)
[2021-08-03] MEDS: Budesonide/Formoterol 160/4.5 1 PUFF INH IH SCH ×2 (07:31→20:18)
[2021-08-03] MEDS: carvediloL 25 MG TABLET PO SCH ×2 (08:09→17:02)
[2021-08-03] MEDS: Aspirin 81 MG TAB.CHEW PO SCH ×2 (08:09→20:31)
[2021-08-03] MEDS: allopurinoL 300 MG TABLET PO SCH (08:09)
[2021-08-03] MEDS: MethylPREDNISolone 40 MG/ML VIAL IVP SCH (08:10)
[2021-08-03] MEDS: Pantoprazole 40 MG VIAL IVP SCH (08:10)
[2021-08-03] MEDS: polyethylene glycoL 3350 17 GM POWD.PACK PO SCH (08:10)
[2021-08-03] MEDS: Chlorhexidine Rinse 15 ML MOUTHWASH MM SCH ×2 (08:10→20:36)
[2021-08-03] MEDS: Insulin LISPRO 300 UNITS/3 ML VIAL SUBQ SCH ×4 (08:22→19:37)
[2021-08-03] MEDS ORDERED: Furosemide 20 MG/2 ML VIAL IVP ONE (08:49)
[2021-08-03] MEDS ORDERED: Dexmedetomidine HCl 400 MCG/100 ML MLS IVC ONE (09:22)
[2021-08-03] MEDS: Dexmedetomidine HCl 400 MCG/100 ML MLS IVC SCH ×4 (09:25→21:15)
[2021-08-03] MEDS: *HR* HYDROcodone/Acet 5/325 mg TABLET PO PRN ×2 (11:14→23:50)
[2021-08-03] MEDS: levoFLOXacin 750 MG/150 ML 750 MG/150 ML BAG IVPB SCH (13:50)
[2021-08-03] MEDS ORDERED: Ondansetron 4 MG/2 ML VIAL IVP PRN (13:56)
[2021-08-03] MEDS ORDERED: 0.9 % Sodium Chloride 250 ML IVC PRN (13:56)
[2021-08-03] MEDS ORDERED: Dextrose Gel 15 GM/37.5 ML TUBE PO PRN ×2 (13:56)
[2021-08-03] MEDS ORDERED: Naloxone 0.4 MG/ML INJ IVP PRN (13:56)
[2021-08-03] MEDS ORDERED: D5% in Water 1,000 ML IVC PRN (13:56)
[2021-08-03] MEDS ORDERED: *HR* Dextrose 50 % in Water (Syg) 50 ML SYRINGE IVP PRN (13:56)
[2021-08-03] MEDS ORDERED: Ipratropium/Albuterol Neb 3 ML IH PRN (13:56)
[2021-08-04] MEDS: Dexmedetomidine HCl 400 MCG/100 ML MLS IVC SCH ×5 (01:39→20:37)
[2021-08-04] MEDS: Ipratropium/Albuterol Neb 3 ML IH SCH ×3 (03:49→15:33)
[2021-08-04 03:51] LABS: Basophils # 0.1 K/mcL (0.0-0.2); Basophils % 0.6 %; Hematocrit 30.1 % (35.3-44.9); Hemoglobin 9.2 g/dL (11.5-15.4); Immature Granulocytes % 6.7 % (0-4); Lymphocytes # 0.8 K/mcL (0.6-4.6); Lymphocytes % 7.6 %; Mean Corpuscular HGB Conc 30.6 g/dL (31.6-35.5); Mean Corpuscular Hemoglobin 29.5 pg (28.0-33.3); Mean Corpuscular Volume 96.5 fL (83.0-100.0); Mean Platelet Volume 10.8 fL (9.4-12.4); Monocytes # 0.5 K/mcL (0.0-1.3); Monocytes % 4.9 %; Nucleated Red Blood Cells 2.1 /100 WBC (0); Platelet Count 371 K/mcL (140-400); Red Blood Count 3.12 M/mcL (3.82-4.97); Segmented Neutrophils % 80.2 %
[2021-08-04 04:11] LABS: Large Platelets Present (Not Present); Polychromasia 1+ (Not Present); Reactive Lymphocytes Present (Not Present)
[2021-08-04 04:12] LABS: BUN/Creatinine Ratio 47 (6-26); Blood Urea Nitrogen 48 mg/dL (8-23); Calcium 9.3 mg/dL (8.6-10.3); Carbon Dioxide 26 mEq/L (23-29); Chloride 107 mEq/L (98-107); Glucose 144 mg/dL (70-105); Magnesium 1.8 mg/dL (1.6-2.6); Osmolality,Calculated 303 (280-300); Sodium 139 mEq/L (136-145); eGFR For African Americans > 60 (> 60); eGFR For Non-African Americans 53 (> 60)
[2021-08-04] MEDS: *HR* Heparin 5,000 UNIT/ML VIAL SQ SCH ×3 (05:20→20:37)
[2021-08-04] MEDS: Chlorhexidine Rinse 15 ML MOUTHWASH MM SCH ×2 (07:39→20:37)
[2021-08-04] MEDS: allopurinoL 300 MG TABLET PO SCH (07:39)
[2021-08-04] MEDS: polyethylene glycoL 3350 17 GM POWD.PACK PO SCH (07:39)
[2021-08-04] MEDS: Aspirin 81 MG TAB.CHEW PO SCH ×2 (07:40→20:36)
[2021-08-04] MEDS: Insulin LISPRO 300 UNITS/3 ML VIAL SUBQ SCH ×4 (07:40→20:37)
[2021-08-04] MEDS: carvediloL 25 MG TABLET PO SCH ×2 (07:40→17:37)
[2021-08-04] MEDS: *HR* OxyCODONE Immed Rel 5 MG TABLET PO PRN ×3 (07:50→16:37)
[2021-08-04] MEDS ORDERED: predniSONE 20 MG TABLET PO SCH (09:00)
[2021-08-04] MEDS: Budesonide/Formoterol 160/4.5 1 PUFF INH IH SCH ×2 (10:18→23:40)
[2021-08-04] MEDS: levoFLOXacin 750 MG/150 ML 750 MG/150 ML BAG IVPB SCH (14:11)
[2021-08-04 15:35] LABS: Adenovirus Not Detected (Not Detect); Coronavirus 229E Not Detected (Not Detect); Coronavirus HKU1 Not Detected (Not Detect); Coronavirus NL63 Not Detected (Not Detect); Coronavirus OC43 Not Detected (Not Detect); Human Metapneumovirus Not Detected (Not Detect); Human Rhinovirus/Enterovirus Not Detected (Not Detect)
[2021-08-04 15:36] LABS: Bordetella Pertussis Not Detected (Not Detect); Chlamydophila pneumoniae Not Detected (Not Detect); Influenza A Subtype 2009 H1 Not Detected (Not Detect); Influenza B Not Detected (Not Detect); Mycoplasma pneumoniae Not Detected (Not Detect); Parainfluenza Virus 1 Not Detected (Not Detect); Parainfluenza Virus 2 Not Detected (Not Detect); Parainfluenza Virus 3 Not Detected (Not Detect); Parainfluenza Virus 4 Not Detected (Not Detect); Respiratory Syncytial Virus Not Detected (Not Detect)
[2021-08-04 15:40] LABS: SARS-CoV-2 DETECTED (Not Detect)
[2021-08-04] MEDS: *HR* LORazepam 0.5 MG TABLET PO PRN (16:37)
[2021-08-04] MEDS: *HR* HYDROcodone/Acet 5/325 mg TABLET PO PRN (20:36)
[2021-08-04 22:08] LABS: C-Reactive Protein 100 mg/L (Less than 10)
[2021-08-04 22:26] LABS: Ferritin 553 ng/mL (10-120)
[2021-08-04] MEDS: dexAMETHasone 4 MG TABLET PO SCH (22:53)
[2021-08-04] MEDS: Ipratropium 1 PUFF INHALER IH SCH (23:41)
[2021-08-05] MEDS: Dexmedetomidine HCl 400 MCG/100 ML MLS IVC SCH ×4 (03:43→23:12)
[2021-08-05] MEDS: *HR* OxyCODONE Immed Rel 5 MG TABLET PO PRN ×3 (03:52→16:27)
[2021-08-05] MEDS: Ipratropium 1 PUFF INHALER IH SCH ×4 (03:52→19:45)
[2021-08-05] MEDS: *HR* Heparin 5,000 UNIT/ML VIAL SQ SCH ×3 (05:12→21:09)
[2021-08-05 05:39] LABS: Mean Corpuscular Volume 96.7 fL (83.0-100.0); Mean Platelet Volume 10.5 fL (9.4-12.4); Monocytes # 0.3 K/mcL (0.0-1.3); Nucleated Red Blood Cells 1.1 /100 WBC (0); Platelet Count 350 K/mcL (140-400); Red Cell Distribution Width 16.8 % (11.5-14.5); White Blood Count 6.3 K/mcL (4.3-11.1)
[2021-08-05 05:58] LABS: Alanine Aminotransferase 42 Units/L (7-52); Albumin 2.9 g/dL (3.5-5.7); Alkaline Phosphatase 86 Units/L (34-104); Aspartate Amino Transferase 38 Units/L (13-39); BUN/Creatinine Ratio 46 (6-26); Bilirubin,Direct 0.1 mg/dL (0.0-0.2); Bilirubin,Indirect 0.5 mg/dL (0.0-1.0); Bilirubin,Total 0.6 mg/dL (0.3-1.0); Blood Urea Nitrogen 37 mg/dL (8-23); Calcium 8.8 mg/dL (8.6-10.3); Carbon Dioxide 27 mEq/L (23-29); Chloride 102 mEq/L (98-107); Glucose 140 mg/dL (70-105); Osmolality,Calculated 295 (280-300); Potassium 3.8 mEq/L (3.5-5.1); Sodium 137 mEq/L (136-145); Total Protein 5.9 g/dL (6.4-8.9); eGFR For African Americans > 60 (> 60); eGFR For Non-African Americans > 60 (> 60)
[2021-08-05 07:37] LABS: Neutrophils # 4.9 K/mcL (1.6-8.9)
[2021-08-05 07:38] LABS: Anisocytosis 1+ (Not Present); Reactive Lymphocytes Present (Not Present)
[2021-08-05] MEDS: Budesonide/Formoterol 160/4.5 1 PUFF INH IH SCH ×2 (07:48→19:45)
[2021-08-05] MEDS: *HR* LORazepam 0.5 MG TABLET PO PRN (08:16)
[2021-08-05] MEDS: Chlorhexidine Rinse 15 ML MOUTHWASH MM SCH ×2 (08:17→21:11)
[2021-08-05] MEDS: carvediloL 25 MG TABLET PO SCH ×2 (08:17→17:44)
[2021-08-05] MEDS: polyethylene glycoL 3350 17 GM POWD.PACK PO SCH (08:17)
[2021-08-05] MEDS: Aspirin 81 MG TAB.CHEW PO SCH ×2 (08:18→21:09)
[2021-08-05] MEDS: allopurinoL 300 MG TABLET PO SCH (08:19)
[2021-08-05] MEDS: Insulin LISPRO 300 UNITS/3 ML VIAL SUBQ SCH ×4 (08:19→21:16)
[2021-08-05] MEDS: dexAMETHasone 4 MG TABLET PO SCH (08:19)
[2021-08-05] MEDS: levoFLOXacin 750 MG/150 ML 750 MG/150 ML BAG IVPB SCH (14:28)
[2021-08-05 15:18] LABS: Albumin 2.8 g/dL (3.5-5.7); Albumin/Globulin Ratio 0.9 (1.1-2.2); Bilirubin,Direct 0.1 mg/dL (0.0-0.2); Bilirubin,Indirect 0.4 mg/dL (0.0-1.0); Bilirubin,Total 0.5 mg/dL (0.3-1.0); Globulin 3.2 g/dL (2.4-3.5)
[2021-08-05] MEDS ORDERED: Remdesivir 200 MG in 0.9 % Sodium Chloride 100 ML IVPB ONE (16:00)
[2021-08-06] MEDS: *HR* HYDROcodone/Acet 5/325 mg TABLET PO PRN ×2 (00:36→06:23)
[2021-08-06] MEDS: *HR* LORazepam 0.5 MG TABLET PO PRN (00:48)
[2021-08-06] MEDS: Ipratropium 1 PUFF INHALER IH SCH ×4 (03:59→21:39)
[2021-08-06] MEDS: Dexmedetomidine HCl 400 MCG/100 ML MLS IVC SCH ×3 (04:26→20:22)
[2021-08-06 05:19] LABS: Hematocrit 28.2 % (35.3-44.9); Hemoglobin 8.9 g/dL (11.5-15.4); Mean Corpuscular HGB Conc 31.6 g/dL (31.6-35.5); Mean Corpuscular Hemoglobin 30.2 pg (28.0-33.3); Mean Corpuscular Volume 95.6 fL (83.0-100.0); Mean Platelet Volume 10.5 fL (9.4-12.4); Nucleated Red Blood Cells 0.5 /100 WBC (0); Platelet Count 369 K/mcL (140-400); Red Blood Count 2.95 M/mcL (3.82-4.97); Red Cell Distribution Width 16.7 % (11.5-14.5); White Blood Count 7.3 K/mcL (4.3-11.1)
[2021-08-06 05:35] LABS: Albumin 2.8 g/dL (3.5-5.7); Albumin/Globulin Ratio 0.9 (1.1-2.2); BUN/Creatinine Ratio 40 (6-26); Bilirubin,Direct 0.2 mg/dL (0.0-0.2); Bilirubin,Indirect 0.3 mg/dL (0.0-1.0); Bilirubin,Total 0.5 mg/dL (0.3-1.0); Blood Urea Nitrogen 27 mg/dL (8-23); Calcium 8.7 mg/dL (8.6-10.3); Carbon Dioxide 26 mEq/L (23-29); Chloride 103 mEq/L (98-107); Globulin 3.2 g/dL (2.4-3.5); Glucose 139 mg/dL (70-105); Osmolality,Calculated 291 (280-300); Potassium 3.9 mEq/L (3.5-5.1); Sodium 137 mEq/L (136-145); eGFR For African Americans > 60 (> 60); eGFR For Non-African Americans > 60 (> 60)
[2021-08-06 05:39] LABS: Anisocytosis 1+ (Not Present); Lymphocytes # 0.7 K/mcL (0.6-4.6); Neutrophils # 6.6 K/mcL (1.6-8.9); Polychromasia 1+ (Not Present)
[2021-08-06 05:40] LABS: Platelet Estimate Normal (Normal)
[2021-08-06] MEDS: *HR* Heparin 5,000 UNIT/ML VIAL SQ SCH ×2 (06:23→13:11)
[2021-08-06] MEDS: Insulin LISPRO 300 UNITS/3 ML VIAL SUBQ SCH ×4 (07:08→20:33)
[2021-08-06] MEDS: Chlorhexidine Rinse 15 ML MOUTHWASH MM SCH ×2 (07:08→20:29)
[2021-08-06] MEDS: polyethylene glycoL 3350 17 GM POWD.PACK PO SCH (07:08)
[2021-08-06] MEDS: Aspirin 81 MG TAB.CHEW PO SCH ×2 (07:26→20:28)
[2021-08-06] MEDS: dexAMETHasone 4 MG TABLET PO SCH (07:26)
[2021-08-06] MEDS: allopurinoL 300 MG TABLET PO SCH (07:26)
[2021-08-06] MEDS: carvediloL 25 MG TABLET PO SCH ×2 (07:26→17:10)
[2021-08-06] MEDS: *HR* OxyCODONE Immed Rel 5 MG TABLET PO PRN ×3 (09:52→20:28)
[2021-08-06] MEDS: Budesonide/Formoterol 160/4.5 1 PUFF INH IH SCH ×2 (10:12→21:40)
[2021-08-06] MEDS: Remdesivir 100 MG in 0.9 % Sodium Chloride 100 ML IVPB SCH (15:17)
[2021-08-06] MEDS: Apixaban 5 MG TABLET PO SCH (20:28)
[2021-08-07 03:11] LABS: Basophils % 0.5 %; Hematocrit 28.8 % (35.3-44.9); Hemoglobin 8.9 g/dL (11.5-15.4); Lymphocytes # 0.5 K/mcL (0.6-4.6); Lymphocytes % 8.4 %; Mean Corpuscular HGB Conc 30.9 g/dL (31.6-35.5); Mean Corpuscular Hemoglobin 29.8 pg (28.0-33.3); Mean Corpuscular Volume 96.3 fL (83.0-100.0); Mean Platelet Volume 10.5 fL (9.4-12.4); Monocytes # 0.3 K/mcL (0.0-1.3); Monocytes % 4.5 %; Neutrophils # 4.9 K/mcL (1.6-8.9); Nucleated Red Blood Cells 0.3 /100 WBC (0); Platelet Count 354 K/mcL (140-400); Red Blood Count 2.99 M/mcL (3.82-4.97); Red Cell Distribution Width 16.9 % (11.5-14.5); Segmented Neutrophils % 79.6 %; White Blood Count 6.2 K/mcL (4.3-11.1)
[2021-08-07 03:24] LABS: Alanine Aminotransferase 27 Units/L (7-52); Albumin 2.8 g/dL (3.5-5.7); Albumin/Globulin Ratio 0.9 (1.1-2.2); Alkaline Phosphatase 80 Units/L (34-104); Aspartate Amino Transferase 20 Units/L (13-39); BUN/Creatinine Ratio 40 (6-26); Bilirubin,Direct 0.1 mg/dL (0.0-0.2); Bilirubin,Indirect 0.4 mg/dL (0.0-1.0); Bilirubin,Total 0.5 mg/dL (0.3-1.0); Blood Urea Nitrogen 27 mg/dL (8-23); Calcium 8.6 mg/dL (8.6-10.3); Carbon Dioxide 26 mEq/L (23-29); Chloride 106 mEq/L (98-107); Globulin 3.1 g/dL (2.4-3.5); Glucose 136 mg/dL (70-105); Osmolality,Calculated 293 (280-300); Potassium 4.1 mEq/L (3.5-5.1); Sodium 138 mEq/L (136-145); Total Protein 5.9 g/dL (6.4-8.9); eGFR For African Americans > 60 (> 60); eGFR For Non-African Americans > 60 (> 60)
[2021-08-07] MEDS: Ipratropium 1 PUFF INHALER IH SCH ×4 (03:27→19:39)
[2021-08-07 03:34] LABS: Platelet Estimate Normal (Normal)
[2021-08-07 03:35] LABS: Anisocytosis 1+ (Not Present); Polychromasia 1+ (Not Present)
[2021-08-07] MEDS: *HR* OxyCODONE Immed Rel 5 MG TABLET PO PRN ×2 (05:16→20:11)
[2021-08-07] MEDS: Dexmedetomidine HCl 400 MCG/100 ML MLS IVC SCH (05:17)
[2021-08-07] MEDS: polyethylene glycoL 3350 17 GM POWD.PACK PO SCH (08:16)
[2021-08-07] MEDS: Apixaban 5 MG TABLET PO SCH ×2 (08:25→20:11)
[2021-08-07] MEDS: Aspirin 81 MG TAB.CHEW PO SCH ×2 (08:25→20:10)
[2021-08-07] MEDS: allopurinoL 300 MG TABLET PO SCH (08:25)
[2021-08-07] MEDS: *HR* LORazepam 0.5 MG TABLET PO PRN ×2 (08:26→20:11)
[2021-08-07] MEDS: carvediloL 25 MG TABLET PO SCH ×2 (08:26→16:40)
[2021-08-07] MEDS: dexAMETHasone 4 MG TABLET PO SCH (08:26)
[2021-08-07] MEDS: Chlorhexidine Rinse 15 ML MOUTHWASH MM SCH ×2 (08:30→20:11)
[2021-08-07] MEDS: Insulin LISPRO 300 UNITS/3 ML VIAL SUBQ SCH ×4 (08:33→20:10)
[2021-08-07] MEDS ORDERED: 0.9 % Sodium Chloride 250 ML IVC ONE (09:01)
[2021-08-07] MEDS: Budesonide/Formoterol 160/4.5 1 PUFF INH IH SCH ×2 (09:39→19:39)
[2021-08-07] MEDS: Albumin 25% 25gram/100mL 25 GM/100 ML IV.SOLN IVC SCH ×2 (12:32→14:46)
[2021-08-07] MEDS: Remdesivir 100 MG in 0.9 % Sodium Chloride 100 ML IVPB SCH (15:15)
[2021-08-07 15:25] LABS: Magnesium 1.8 mg/dL (1.6-2.6); Phosphorous 2.7 mg/dL (2.7-4.5)
[2021-08-07] MEDS: *HR* HYDROcodone/Acet 5/325 mg TABLET PO PRN (16:40)
[2021-08-07] MEDS: QUEtiapine Fumarate 25 MG TABLET PO SCH (20:11)
[2021-08-08] MEDS: Ipratropium 1 PUFF INHALER IH SCH ×4 (03:17→20:08)
[2021-08-08 03:55] LABS: Basophils % 0.2 %; Hematocrit 26.5 % (35.3-44.9); Hemoglobin 8.1 g/dL (11.5-15.4); Immature Granulocytes % 5.2 % (0-4); Lymphocytes # 0.5 K/mcL (0.6-4.6); Lymphocytes % 8.6 %; Mean Corpuscular HGB Conc 30.6 g/dL (31.6-35.5); Mean Corpuscular Hemoglobin 29.8 pg (28.0-33.3); Mean Corpuscular Volume 97.4 fL (83.0-100.0); Mean Platelet Volume 10.7 fL (9.4-12.4); Monocytes # 0.3 K/mcL (0.0-1.3); Monocytes % 4.8 %; Neutrophils # 4.6 K/mcL (1.6-8.9); Platelet Count 331 K/mcL (140-400); Red Blood Count 2.72 M/mcL (3.82-4.97); Segmented Neutrophils % 81.2 %; White Blood Count 5.6 K/mcL (4.3-11.1)
[2021-08-08 04:12] LABS: Anisocytosis 1+ (Not Present); Hypochromasia Present (Not Present); Platelet Estimate Normal (Normal); Polychromasia 1+ (Not Present)
[2021-08-08 04:15] LABS: Alanine Aminotransferase 20 Units/L (7-52); Albumin 3.1 g/dL (3.5-5.7); Albumin/Globulin Ratio 1.1 (1.1-2.2); Alkaline Phosphatase 90 Units/L (34-104); Aspartate Amino Transferase 19 Units/L (13-39); BUN/Creatinine Ratio 38 (6-26); Bilirubin,Direct 0.2 mg/dL (0.0-0.2); Bilirubin,Indirect 0.4 mg/dL (0.0-1.0); Bilirubin,Total 0.6 mg/dL (0.3-1.0); Blood Urea Nitrogen 26 mg/dL (8-23); Calcium 8.6 mg/dL (8.6-10.3); Carbon Dioxide 26 mEq/L (23-29); Chloride 109 mEq/L (98-107); Globulin 2.8 g/dL (2.4-3.5); Glucose 120 mg/dL (70-105); Osmolality,Calculated 294 (280-300); Potassium 3.8 mEq/L (3.5-5.1); Sodium 139 mEq/L (136-145); Total Protein 5.9 g/dL (6.4-8.9); eGFR For African Americans > 60 (> 60); eGFR For Non-African Americans > 60 (> 60)
[2021-08-08] MEDS: Dexmedetomidine HCl 400 MCG/100 ML MLS IVC SCH ×2 (04:25→14:47)
[2021-08-08] MEDS: Budesonide/Formoterol 160/4.5 1 PUFF INH IH SCH ×2 (07:45→20:09)
[2021-08-08] MEDS: allopurinoL 300 MG TABLET PO SCH (09:35)
[2021-08-08] MEDS: polyethylene glycoL 3350 17 GM POWD.PACK PO SCH (09:35)
[2021-08-08] MEDS: Aspirin 81 MG TAB.CHEW PO SCH ×2 (09:36→20:39)
[2021-08-08] MEDS: dexAMETHasone 4 MG TABLET PO SCH (09:36)
[2021-08-08] MEDS: Chlorhexidine Rinse 15 ML MOUTHWASH MM SCH ×2 (09:36→20:39)
[2021-08-08] MEDS: carvediloL 25 MG TABLET PO SCH ×2 (09:36→17:07)
[2021-08-08] MEDS: Insulin LISPRO 300 UNITS/3 ML VIAL SUBQ SCH ×4 (09:36→20:38)
[2021-08-08] MEDS: Apixaban 5 MG TABLET PO SCH ×2 (09:36→20:39)
[2021-08-08] MEDS: *HR* OxyCODONE Immed Rel 5 MG TABLET PO PRN ×3 (10:02→20:38)
[2021-08-08 11:37] LABS: Ferritin 577 ng/mL (10-120)
[2021-08-08 12:35] LABS: C-Reactive Protein 74 mg/L (Less than 10)
[2021-08-08] MEDS ORDERED: 0.9 % Sodium Chloride 250 ML IVC ONE ×2 (16:16→18:43)
[2021-08-08] MEDS ORDERED: Albumin 25% 25gram/100mL 25 GM/100 ML IV.SOLN IVPB ONE ×2 (16:17→18:43)
[2021-08-08] MEDS: Remdesivir 100 MG in 0.9 % Sodium Chloride 100 ML IVPB SCH (17:06)
[2021-08-08] MEDS: QUEtiapine Fumarate 25 MG TABLET PO SCH (20:39)
[2021-08-09] MEDS: Dexmedetomidine HCl 400 MCG/100 ML MLS IVC SCH ×2 (02:42→14:44)
[2021-08-09 03:37] LABS: Basophils % 0.3 %; Hematocrit 26.8 % (35.3-44.9); Hemoglobin 8.1 g/dL (11.5-15.4); Immature Granulocytes % 2.7 % (0-4); Lymphocytes # 0.5 K/mcL (0.6-4.6); Lymphocytes % 7.5 %; Mean Corpuscular HGB Conc 30.2 g/dL (31.6-35.5); Mean Corpuscular Hemoglobin 29.6 pg (28.0-33.3); Mean Corpuscular Volume 97.8 fL (83.0-100.0); Mean Platelet Volume 10.8 fL (9.4-12.4); Monocytes # 0.3 K/mcL (0.0-1.3); Monocytes % 5.5 %; Neutrophils # 5.1 K/mcL (1.6-8.9); Platelet Count 307 K/mcL (140-400); Red Blood Count 2.74 M/mcL (3.82-4.97); Red Cell Distribution Width 16.9 % (11.5-14.5)
[2021-08-09] MEDS: Ipratropium 1 PUFF INHALER IH SCH ×4 (03:50→20:09)
[2021-08-09 03:57] LABS: BUN/Creatinine Ratio 34 (6-26); Blood Urea Nitrogen 24 mg/dL (8-23); Calcium 8.7 mg/dL (8.6-10.3); Carbon Dioxide 27 mEq/L (23-29); Chloride 108 mEq/L (98-107); Glucose 137 mg/dL (70-105); Osmolality,Calculated 298 (280-300); Potassium 4.3 mEq/L (3.5-5.1); Sodium 141 mEq/L (136-145); eGFR For African Americans > 60 (> 60); eGFR For Non-African Americans > 60 (> 60)
[2021-08-09] MEDS: *HR* OxyCODONE Immed Rel 5 MG TABLET PO PRN ×3 (05:55→17:05)
[2021-08-09] MEDS: Budesonide/Formoterol 160/4.5 1 PUFF INH IH SCH ×2 (07:48→20:10)
[2021-08-09] MEDS: dexAMETHasone 4 MG TABLET PO SCH (09:09)
[2021-08-09] MEDS: polyethylene glycoL 3350 17 GM POWD.PACK PO SCH (09:09)
[2021-08-09] MEDS: *HR* HYDROcodone/Acet 5/325 mg TABLET PO PRN (09:09)
[2021-08-09 09:10] LABS: C-Reactive Protein 77 mg/L (Less than 10)
[2021-08-09] MEDS: Insulin LISPRO 300 UNITS/3 ML VIAL SUBQ SCH ×4 (09:10→20:53)
[2021-08-09] MEDS: Apixaban 5 MG TABLET PO SCH ×2 (09:10→20:52)
[2021-08-09] MEDS: Aspirin 81 MG TAB.CHEW PO SCH ×2 (09:10→20:52)
[2021-08-09] MEDS: carvediloL 25 MG TABLET PO SCH ×2 (09:10→17:04)
[2021-08-09] MEDS: Chlorhexidine Rinse 15 ML MOUTHWASH MM SCH ×2 (09:10→20:53)
[2021-08-09] MEDS: allopurinoL 300 MG TABLET PO SCH (09:10)
[2021-08-09] MEDS: QUEtiapine Fumarate 25 MG TABLET PO SCH ×2 (12:03→20:52)
[2021-08-09 14:41] LABS: Albumin 3.3 g/dL (3.5-5.7); Albumin/Globulin Ratio 1.2 (1.1-2.2); Bilirubin,Direct 0.2 mg/dL (0.0-0.2); Bilirubin,Indirect 0.4 mg/dL (0.0-1.0); Bilirubin,Total 0.6 mg/dL (0.3-1.0); Globulin 2.7 g/dL (2.4-3.5)
[2021-08-09] MEDS: Remdesivir 100 MG in 0.9 % Sodium Chloride 100 ML IVPB SCH (17:05)
[2021-08-10] MEDS: Dexmedetomidine HCl 400 MCG/100 ML MLS IVC SCH ×3 (01:52→23:34)
[2021-08-10] MEDS: *HR* OxyCODONE Immed Rel 5 MG TABLET PO PRN ×3 (01:53→15:52)
[2021-08-10 02:33] LABS: Basophils % 0.3 %; Hematocrit 28.1 % (35.3-44.9); Hemoglobin 8.3 g/dL (11.5-15.4); Immature Granulocytes % 2.5 % (0-4); Lymphocytes # 0.6 K/mcL (0.6-4.6); Lymphocytes % 8.4 %; Mean Corpuscular HGB Conc 29.5 g/dL (31.6-35.5); Mean Corpuscular Hemoglobin 28.9 pg (28.0-33.3); Mean Corpuscular Volume 97.9 fL (83.0-100.0); Mean Platelet Volume 10.7 fL (9.4-12.4); Monocytes # 0.4 K/mcL (0.0-1.3); Monocytes % 4.9 %; Neutrophils # 6.4 K/mcL (1.6-8.9); Platelet Count 316 K/mcL (140-400); Red Blood Count 2.87 M/mcL (3.82-4.97); Red Cell Distribution Width 16.3 % (11.5-14.5); Segmented Neutrophils % 83.9 %; White Blood Count 7.6 K/mcL (4.3-11.1)
[2021-08-10 02:52] LABS: BUN/Creatinine Ratio 40 (6-26); Blood Urea Nitrogen 24 mg/dL (8-23); Calcium 8.8 mg/dL (8.6-10.3); Carbon Dioxide 27 mEq/L (23-29); Chloride 108 mEq/L (98-107); Glucose 107 mg/dL (70-105); Osmolality,Calculated 293 (280-300); Potassium 4.2 mEq/L (3.5-5.1); Sodium 139 mEq/L (136-145); eGFR For African Americans > 60 (> 60); eGFR For Non-African Americans > 60 (> 60)
[2021-08-10] MEDS: Ipratropium 1 PUFF INHALER IH SCH ×4 (04:04→20:57)
[2021-08-10] MEDS: Budesonide/Formoterol 160/4.5 1 PUFF INH IH SCH ×2 (07:50→20:57)
[2021-08-10] MEDS: dexAMETHasone 4 MG TABLET PO SCH (08:22)
[2021-08-10] MEDS: Chlorhexidine Rinse 15 ML MOUTHWASH MM SCH ×3 (08:22→21:22)
[2021-08-10] MEDS: Apixaban 5 MG TABLET PO SCH ×2 (08:22→21:17)
[2021-08-10] MEDS: allopurinoL 300 MG TABLET PO SCH (08:22)
[2021-08-10] MEDS: QUEtiapine Fumarate 25 MG TABLET PO SCH ×2 (08:23→21:17)
[2021-08-10] MEDS: Aspirin 81 MG TAB.CHEW PO SCH ×2 (08:23→21:17)
[2021-08-10] MEDS: carvediloL 25 MG TABLET PO SCH ×2 (08:23→15:53)
[2021-08-10] MEDS: polyethylene glycoL 3350 17 GM POWD.PACK PO SCH (08:24)
[2021-08-10] MEDS: Insulin LISPRO 300 UNITS/3 ML VIAL SUBQ SCH ×4 (08:25→21:11)
[2021-08-10 20:25] LABS: Magnesium 1.7 mg/dL (1.6-2.6); Phosphorous 2.5 mg/dL (2.7-4.5)
[2021-08-11] MEDS: *HR* OxyCODONE Immed Rel 5 MG TABLET PO PRN ×2 (03:19→09:58)
[2021-08-11 03:47] LABS: Hematocrit 28.9 % (35.3-44.9); Hemoglobin 8.9 g/dL (11.5-15.4); Mean Corpuscular HGB Conc 30.8 g/dL (31.6-35.5); Mean Corpuscular Hemoglobin 29.6 pg (28.0-33.3); Mean Platelet Volume 10.6 fL (9.4-12.4); Platelet Count 348 K/mcL (140-400); Red Blood Count 3.01 M/mcL (3.82-4.97); Red Cell Distribution Width 16.2 % (11.5-14.5); White Blood Count 7.8 K/mcL (4.3-11.1)
[2021-08-11] MEDS: Ipratropium 1 PUFF INHALER IH SCH ×4 (03:48→20:10)
[2021-08-11 04:02] LABS: BUN/Creatinine Ratio 37 (6-26); Blood Urea Nitrogen 22 mg/dL (8-23); Calcium 8.9 mg/dL (8.6-10.3); Carbon Dioxide 27 mEq/L (23-29); Chloride 107 mEq/L (98-107); Glucose 108 mg/dL (70-105); Osmolality,Calculated 290 (280-300); Potassium 3.9 mEq/L (3.5-5.1); Sodium 138 mEq/L (136-145); eGFR For African Americans > 60 (> 60); eGFR For Non-African Americans > 60 (> 60)
[2021-08-11] MEDS: Insulin LISPRO 300 UNITS/3 ML VIAL SUBQ SCH ×4 (09:52→21:03)
[2021-08-11] MEDS: Dexmedetomidine HCl 400 MCG/100 ML MLS IVC SCH ×2 (09:56→23:22)
[2021-08-11] MEDS: dexAMETHasone 4 MG TABLET PO SCH (09:57)
[2021-08-11] MEDS: Aspirin 81 MG TAB.CHEW PO SCH (09:57)
[2021-08-11] MEDS: Chlorhexidine Rinse 15 ML MOUTHWASH MM SCH ×2 (09:57→21:03)
[2021-08-11] MEDS: polyethylene glycoL 3350 17 GM POWD.PACK PO SCH (09:57)
[2021-08-11] MEDS: Apixaban 5 MG TABLET PO SCH ×2 (09:58→21:02)
[2021-08-11] MEDS: allopurinoL 300 MG TABLET PO SCH (09:58)
[2021-08-11] MEDS: QUEtiapine Fumarate 25 MG TABLET PO SCH ×2 (09:58→21:02)
[2021-08-11] MEDS: *HR* LORazepam 0.5 MG TABLET PO PRN ×2 (09:58→23:14)
[2021-08-11] MEDS: carvediloL 25 MG TABLET PO SCH (10:50)
[2021-08-11] MEDS: Budesonide/Formoterol 160/4.5 1 PUFF INH IH SCH ×2 (10:55→20:10)
[2021-08-11] MEDS ORDERED: 0.9 % Sodium Chloride 250 ML IVC ONE (13:51)
[2021-08-11] MEDS ORDERED: Albumin 25% 25gram/100mL 25 GM/100 ML IV.SOLN IVPB ONE (13:52)
[2021-08-11] MEDS ORDERED: Acetaminophen IV 1,000 MG/100 ML BAG IVPB ONE (16:20)
[2021-08-11] MEDS: Saline Nasal Spray 44 ML BOTTLE NS PRN (16:45)
[2021-08-11] MEDS: Fluticasone Propionate Nasal 50 MCG/SPRAY BOTTLE NS SCH (16:46)
[2021-08-11 16:54] LABS: VBG HCO3 26 mEq/L (21-27); VBG PCO2 47 mmHg (41-51); VBG PH 7.36 pH Units (7.32-7.42); VBG PO2 49 mmHg (25-50)
[2021-08-11] MEDS: Loratadine 10 MG TABLET PO SCH (17:45)
[2021-08-11] MEDS: *HR* HYDROcodone/Acet 5/325 mg TABLET PO PRN (23:07)
[2021-08-12] MEDS: *HR* OxyCODONE Immed Rel 5 MG TABLET PO PRN ×4 (02:53→23:27)
[2021-08-12] MEDS: *HR* LORazepam 0.5 MG TABLET PO PRN ×3 (03:11→23:27)
[2021-08-12] MEDS: Ipratropium 1 PUFF INHALER IH SCH ×4 (03:51→19:53)
[2021-08-12] MEDS: *HR* HYDROcodone/Acet 5/325 mg TABLET PO PRN ×2 (05:45→21:03)
[2021-08-12 06:05] LABS: Hematocrit 27.6 % (35.3-44.9); Hemoglobin 8.4 g/dL (11.5-15.4); Mean Corpuscular HGB Conc 30.4 g/dL (31.6-35.5); Mean Corpuscular Hemoglobin 29.3 pg (28.0-33.3); Mean Corpuscular Volume 96.2 fL (83.0-100.0); Mean Platelet Volume 10.3 fL (9.4-12.4); Platelet Count 355 K/mcL (140-400); Red Blood Count 2.87 M/mcL (3.82-4.97); Red Cell Distribution Width 16.2 % (11.5-14.5); White Blood Count 6.6 K/mcL (4.3-11.1)
[2021-08-12 06:24] LABS: BUN/Creatinine Ratio 38 (6-26); Blood Urea Nitrogen 23 mg/dL (8-23); Calcium 8.9 mg/dL (8.6-10.3); Carbon Dioxide 28 mEq/L (23-29); Chloride 107 mEq/L (98-107); Glucose 122 mg/dL (70-105); Osmolality,Calculated 301 (280-300); Sodium 143 mEq/L (136-145); eGFR For African Americans > 60 (> 60); eGFR For Non-African Americans > 60 (> 60)
[2021-08-12] MEDS: Budesonide/Formoterol 160/4.5 1 PUFF INH IH SCH ×2 (07:28→19:53)
[2021-08-12] MEDS: Insulin LISPRO 300 UNITS/3 ML VIAL SUBQ SCH ×4 (09:01→21:23)
[2021-08-12] MEDS: Aspirin 81 MG TAB.CHEW PO SCH (09:13)
[2021-08-12] MEDS: Chlorhexidine Rinse 15 ML MOUTHWASH MM SCH ×2 (09:13→21:02)
[2021-08-12] MEDS: polyethylene glycoL 3350 17 GM POWD.PACK PO SCH (09:13)
[2021-08-12] MEDS: Metoprolol XL (24 HR) Succ 25 MG TAB.ER.24H PO SCH (09:14)
[2021-08-12] MEDS: Apixaban 5 MG TABLET PO SCH ×2 (09:14→21:03)
[2021-08-12] MEDS: dexAMETHasone 4 MG TABLET PO SCH (09:14)
[2021-08-12] MEDS: Loratadine 10 MG TABLET PO SCH (09:14)
[2021-08-12] MEDS: QUEtiapine Fumarate 25 MG TABLET PO SCH ×2 (09:14→21:02)
[2021-08-12] MEDS: allopurinoL 300 MG TABLET PO SCH (09:14)
[2021-08-12] MEDS: Fluticasone Propionate Nasal 50 MCG/SPRAY BOTTLE NS SCH (09:15)
[2021-08-12] MEDS: Dexmedetomidine HCl 400 MCG/100 ML MLS IVC SCH ×3 (12:09→23:26)
[2021-08-12] MEDS ORDERED: Albumin 25% 25gram/100mL 25 GM/100 ML IV.SOLN IVPB ONE (23:41)
[2021-08-12] MEDS ORDERED: 0.9 % Sodium Chloride 250 ML IVC ONE (23:41)
[2021-08-13] MEDS: Acetaminophen 325 MG TABLET PO PRN (01:27)
[2021-08-13] MEDS: Ipratropium 1 PUFF INHALER IH SCH ×4 (04:07→19:52)
[2021-08-13] MEDS: *HR* OxyCODONE Immed Rel 5 MG TABLET PO PRN ×3 (05:30→17:07)
[2021-08-13 05:49] LABS: Hematocrit 27.9 % (35.3-44.9); Hemoglobin 8.5 g/dL (11.5-15.4); Mean Corpuscular HGB Conc 30.5 g/dL (31.6-35.5); Mean Corpuscular Hemoglobin 29.4 pg (28.0-33.3); Mean Corpuscular Volume 96.5 fL (83.0-100.0); Mean Platelet Volume 10.3 fL (9.4-12.4); Platelet Count 370 K/mcL (140-400); Red Blood Count 2.89 M/mcL (3.82-4.97); Red Cell Distribution Width 16.1 % (11.5-14.5); White Blood Count 7.1 K/mcL (4.3-11.1)
[2021-08-13 06:07] LABS: BUN/Creatinine Ratio 38 (6-26); Blood Urea Nitrogen 27 mg/dL (8-23); Calcium 8.8 mg/dL (8.6-10.3); Carbon Dioxide 29 mEq/L (23-29); Chloride 106 mEq/L (98-107); Glucose 111 mg/dL (70-105); Osmolality,Calculated 296 (280-300); Potassium 3.9 mEq/L (3.5-5.1); Sodium 140 mEq/L (136-145); eGFR For African Americans > 60 (> 60); eGFR For Non-African Americans > 60 (> 60)
[2021-08-13] MEDS: Budesonide/Formoterol 160/4.5 1 PUFF INH IH SCH ×2 (08:03→19:53)
[2021-08-13] MEDS: Insulin LISPRO 300 UNITS/3 ML VIAL SUBQ SCH ×4 (09:09→22:16)
[2021-08-13] MEDS: Chlorhexidine Rinse 15 ML MOUTHWASH MM SCH ×2 (09:09→22:15)
[2021-08-13] MEDS: *HR* HYDROcodone/Acet 5/325 mg TABLET PO PRN ×2 (09:09→22:14)
[2021-08-13] MEDS: *HR* LORazepam 0.5 MG TABLET PO PRN ×2 (09:09→17:07)
[2021-08-13] MEDS: Metoprolol XL (24 HR) Succ 25 MG TAB.ER.24H PO SCH (09:09)
[2021-08-13] MEDS: Aspirin 81 MG TAB.CHEW PO SCH (09:10)
[2021-08-13] MEDS: dexAMETHasone 4 MG TABLET PO SCH (09:10)
[2021-08-13] MEDS: allopurinoL 300 MG TABLET PO SCH (09:10)
[2021-08-13] MEDS: Loratadine 10 MG TABLET PO SCH (09:10)
[2021-08-13] MEDS: QUEtiapine Fumarate 25 MG TABLET PO SCH ×2 (09:11→22:14)
[2021-08-13] MEDS: Apixaban 5 MG TABLET PO SCH ×2 (09:11→22:15)
[2021-08-13] MEDS: Fluticasone Propionate Nasal 50 MCG/SPRAY BOTTLE NS SCH (09:12)
[2021-08-13] MEDS: polyethylene glycoL 3350 17 GM POWD.PACK PO SCH (09:13)
[2021-08-13] MEDS: Dexmedetomidine HCl 400 MCG/100 ML MLS IVC SCH ×2 (11:41→12:37)
[2021-08-13] MEDS: Melatonin 3 MG TABLET PO PRN (22:13)
[2021-08-14] MEDS: Dexmedetomidine HCl 400 MCG/100 ML MLS IVC SCH ×3 (03:37→21:47)
[2021-08-14] MEDS: *HR* OxyCODONE Immed Rel 5 MG TABLET PO PRN ×5 (03:41→21:53)
[2021-08-14] MEDS: Ipratropium 1 PUFF INHALER IH SCH ×4 (03:52→20:13)
[2021-08-14] MEDS: Budesonide/Formoterol 160/4.5 1 PUFF INH IH SCH ×2 (07:45→20:13)
[2021-08-14] MEDS: Chlorhexidine Rinse 15 ML MOUTHWASH MM SCH ×2 (08:17→20:34)
[2021-08-14] MEDS: Fluticasone Propionate Nasal 50 MCG/SPRAY BOTTLE NS SCH (08:17)
[2021-08-14] MEDS: Saline Nasal Spray 44 ML BOTTLE NS PRN (08:17)
[2021-08-14] MEDS: Insulin LISPRO 300 UNITS/3 ML VIAL SUBQ SCH ×4 (08:17→20:32)
[2021-08-14] MEDS: Aspirin 81 MG TAB.CHEW PO SCH (08:18)
[2021-08-14] MEDS: QUEtiapine Fumarate 25 MG TABLET PO SCH ×2 (08:18→20:33)
[2021-08-14] MEDS: Loratadine 10 MG TABLET PO SCH (08:18)
[2021-08-14] MEDS: *HR* LORazepam 0.5 MG TABLET PO PRN ×2 (08:18→16:31)
[2021-08-14] MEDS: allopurinoL 300 MG TABLET PO SCH (08:18)
[2021-08-14] MEDS: dexAMETHasone 4 MG TABLET PO SCH (08:18)
[2021-08-14] MEDS: Metoprolol XL (24 HR) Succ 25 MG TAB.ER.24H PO SCH (08:18)
[2021-08-14] MEDS: polyethylene glycoL 3350 17 GM POWD.PACK PO SCH (08:19)
[2021-08-14] MEDS: Apixaban 5 MG TABLET PO SCH ×2 (08:19→20:33)
[2021-08-15] MEDS: Ipratropium 1 PUFF INHALER IH SCH ×4 (03:58→20:25)
[2021-08-15] MEDS: *HR* HYDROcodone/Acet 5/325 mg TABLET PO PRN (04:01)
[2021-08-15] MEDS: Dexmedetomidine HCl 400 MCG/100 ML MLS IVC SCH ×3 (05:52→18:04)
[2021-08-15 06:52] LABS: Hematocrit 29.4 % (35.3-44.9); Hemoglobin 9.2 g/dL (11.5-15.4); Mean Corpuscular HGB Conc 31.3 g/dL (31.6-35.5); Mean Corpuscular Hemoglobin 30.5 pg (28.0-33.3); Mean Corpuscular Volume 97.4 fL (83.0-100.0); Mean Platelet Volume 10.3 fL (9.4-12.4); Platelet Count 339 K/mcL (140-400); Red Blood Count 3.02 M/mcL (3.82-4.97); Red Cell Distribution Width 16.1 % (11.5-14.5)
[2021-08-15 07:09] LABS: Alanine Aminotransferase 32 Units/L (7-52); Albumin 3.4 g/dL (3.5-5.7); Albumin/Globulin Ratio 1.2 (1.1-2.2); Alkaline Phosphatase 153 Units/L (34-104); Aspartate Amino Transferase 18 Units/L (13-39); BUN/Creatinine Ratio 38 (6-26); Bilirubin,Total 0.6 mg/dL (0.3-1.0); Blood Urea Nitrogen 26 mg/dL (8-23); Calcium 9.2 mg/dL (8.6-10.3); Carbon Dioxide 27 mEq/L (23-29); Chloride 104 mEq/L (98-107); Globulin 2.9 g/dL (2.4-3.5); Glucose 104 mg/dL (70-105); Magnesium 1.7 mg/dL (1.6-2.6); Osmolality,Calculated 291 (280-300); Potassium 3.8 mEq/L (3.5-5.1); Sodium 138 mEq/L (136-145); Total Protein 6.3 g/dL (6.4-8.9); eGFR For African Americans > 60 (> 60); eGFR For Non-African Americans > 60 (> 60)
[2021-08-15] MEDS: Budesonide/Formoterol 160/4.5 1 PUFF INH IH SCH ×2 (07:58→20:25)
[2021-08-15] MEDS: Loratadine 10 MG TABLET PO SCH (09:32)
[2021-08-15] MEDS: Insulin LISPRO 300 UNITS/3 ML VIAL SUBQ SCH ×4 (09:32→20:02)
[2021-08-15] MEDS: allopurinoL 300 MG TABLET PO SCH (09:33)
[2021-08-15] MEDS: QUEtiapine Fumarate 25 MG TABLET PO SCH ×2 (09:33→20:45)
[2021-08-15] MEDS: *HR* LORazepam 0.5 MG TABLET PO PRN (09:33)
[2021-08-15] MEDS: dexAMETHasone 4 MG TABLET PO SCH (09:33)
[2021-08-15] MEDS: *HR* OxyCODONE Immed Rel 5 MG TABLET PO PRN ×2 (09:33→20:46)
[2021-08-15] MEDS: Apixaban 5 MG TABLET PO SCH ×2 (09:34→20:46)
[2021-08-15] MEDS: Metoprolol XL (24 HR) Succ 25 MG TAB.ER.24H PO SCH (09:34)
[2021-08-15] MEDS: Fluticasone Propionate Nasal 50 MCG/SPRAY BOTTLE NS SCH (09:34)
[2021-08-15] MEDS: polyethylene glycoL 3350 17 GM POWD.PACK PO SCH (09:34)
[2021-08-15] MEDS: Chlorhexidine Rinse 15 ML MOUTHWASH MM SCH ×2 (09:34→20:46)
[2021-08-15] MEDS: Aspirin 81 MG TAB.CHEW PO SCH (09:34)
[2021-08-15] MEDS: Saline Nasal Spray 44 ML BOTTLE NS PRN (09:34)
[2021-08-15] MEDS ORDERED: Albumin 25% 25gram/100mL 25 GM/100 ML IV.SOLN IVPB ONE (14:14)
[2021-08-15] MEDS ORDERED: Amiodarone Premix 150 MG/100 ML BAG IVPB ONE (15:37)
[2021-08-15] MEDS ORDERED: Amiodarone Premix 360 MG/200 ML BAG IVC ONE ×2 (15:37→16:00)
[2021-08-15] MEDS: Norepinephrine 4 MG/254 ML IV.SOLN IVC SCH (16:34)
[2021-08-15 17:07] LABS: Bilirubin,Urine Negative (Negative); Blood,Urine Small (Negative); Clarity,Urine Clear (Clear); Color,Urine Light-Yellow (Yellow); Glucose,Urine (UA) Normal (Normal); Ketones,Urine Negative (Negative); Leukocyte Esterase,Urine Negative (Negative); Mucus,Urine Few per lpf (None-Few); Nitrite,Urine Negative (Negative); Protein,Urine Trace mg/dL (Neg-Trace); Specific Gravity,Urine 1.014 (1.010-1.025); Squamous Epithelial Cell,Urine Few per hpf (None-Few); Urobilinogen,Urine Normal (Normal); WBC,Urine 0-3 per hpf (0-3)
[2021-08-15] MEDS: Melatonin 3 MG TABLET PO PRN (20:46)
[2021-08-15] MEDS: Amiodarone Premix 360 MG/200 ML BAG IVC SCH (21:48)
[2021-08-15 22:36] LABS: Thyroid Stimulating Hormone 0.683 mcIU/mL (0.340-5.600); Troponin I 0.04 ng/mL (< 0.04)
[2021-08-16] MEDS: *HR* HYDROcodone/Acet 5/325 mg TABLET PO PRN (00:01)
[2021-08-16] MEDS: Norepinephrine 4 MG/254 ML IV.SOLN IVC SCH ×2 (00:34→08:18)
[2021-08-16 03:22] LABS: Hematocrit 26.9 % (35.3-44.9); Hemoglobin 8.5 g/dL (11.5-15.4); Mean Corpuscular HGB Conc 31.6 g/dL (31.6-35.5); Mean Corpuscular Hemoglobin 30.9 pg (28.0-33.3); Mean Corpuscular Volume 97.8 fL (83.0-100.0); Mean Platelet Volume 10.6 fL (9.4-12.4); Platelet Count 308 K/mcL (140-400); Red Blood Count 2.75 M/mcL (3.82-4.97); Red Cell Distribution Width 16.1 % (11.5-14.5); White Blood Count 8.1 K/mcL (4.3-11.1)
[2021-08-16 03:35] LABS: BUN/Creatinine Ratio 42 (6-26); Blood Urea Nitrogen 31 mg/dL (8-23); Calcium 8.8 mg/dL (8.6-10.3); Carbon Dioxide 25 mEq/L (23-29); Chloride 105 mEq/L (98-107); Glucose 147 mg/dL (70-105); Magnesium 1.8 mg/dL (1.6-2.6); Osmolality,Calculated 297 (280-300); Sodium 139 mEq/L (136-145); eGFR For African Americans > 60 (> 60); eGFR For Non-African Americans > 60 (> 60)
[2021-08-16] MEDS: Ipratropium 1 PUFF INHALER IH SCH ×4 (03:59→20:37)
[2021-08-16] MEDS: Dexmedetomidine HCl 400 MCG/100 ML MLS IVC SCH ×2 (05:40→16:28)
[2021-08-16] MEDS: Budesonide/Formoterol 160/4.5 1 PUFF INH IH SCH ×2 (07:54→20:37)
[2021-08-16] MEDS: Insulin LISPRO 300 UNITS/3 ML VIAL SUBQ SCH ×4 (08:18→21:23)
[2021-08-16] MEDS: allopurinoL 300 MG TABLET PO SCH (08:35)
[2021-08-16] MEDS: polyethylene glycoL 3350 17 GM POWD.PACK PO SCH (08:35)
[2021-08-16] MEDS: Chlorhexidine Rinse 15 ML MOUTHWASH MM SCH ×2 (08:35→20:22)
[2021-08-16] MEDS: dexAMETHasone 4 MG TABLET PO SCH (08:35)
[2021-08-16] MEDS: Aspirin 81 MG TAB.CHEW PO SCH (08:35)
[2021-08-16] MEDS: QUEtiapine Fumarate 25 MG TABLET PO SCH ×2 (08:35→20:21)
[2021-08-16] MEDS: Loratadine 10 MG TABLET PO SCH (08:36)
[2021-08-16] MEDS: Metoprolol XL (24 HR) Succ 25 MG TAB.ER.24H PO SCH (08:36)
[2021-08-16] MEDS: Saline Nasal Spray 44 ML BOTTLE NS PRN (08:36)
[2021-08-16] MEDS: *HR* OxyCODONE Immed Rel 5 MG TABLET PO PRN ×2 (08:36→17:24)
[2021-08-16] MEDS: Apixaban 5 MG TABLET PO SCH ×2 (08:36→20:22)
[2021-08-16] MEDS: Fluticasone Propionate Nasal 50 MCG/SPRAY BOTTLE NS SCH (08:37)
[2021-08-16] MEDS: Amiodarone Premix 360 MG/200 ML BAG IVC SCH (21:22)
[2021-08-17] MEDS: *HR* LORazepam 0.5 MG TABLET PO PRN ×3 (01:04→23:57)
[2021-08-17] MEDS: Melatonin 3 MG TABLET PO PRN ×2 (01:04→20:35)
[2021-08-17] MEDS: *HR* OxyCODONE Immed Rel 5 MG TABLET PO PRN (01:04)
[2021-08-17] MEDS: Dexmedetomidine HCl 400 MCG/100 ML MLS IVC SCH ×3 (03:26→23:08)
[2021-08-17 03:55] LABS: Hematocrit 28.7 % (35.3-44.9); Hemoglobin 8.8 g/dL (11.5-15.4); Mean Corpuscular HGB Conc 30.7 g/dL (31.6-35.5); Mean Corpuscular Hemoglobin 30.1 pg (28.0-33.3); Mean Corpuscular Volume 98.3 fL (83.0-100.0); Mean Platelet Volume 10.5 fL (9.4-12.4); Platelet Count 299 K/mcL (140-400); Red Blood Count 2.92 M/mcL (3.82-4.97); Red Cell Distribution Width 16.1 % (11.5-14.5); White Blood Count 8.2 K/mcL (4.3-11.1)
[2021-08-17 04:10] LABS: BUN/Creatinine Ratio 42 (6-26); Blood Urea Nitrogen 33 mg/dL (8-23); Carbon Dioxide 26 mEq/L (23-29); Chloride 106 mEq/L (98-107); Glucose 146 mg/dL (70-105); Osmolality,Calculated 298 (280-300); Potassium 4.2 mEq/L (3.5-5.1); Sodium 139 mEq/L (136-145); eGFR For African Americans > 60 (> 60); eGFR For Non-African Americans > 60 (> 60)
[2021-08-17] MEDS: Ipratropium 1 PUFF INHALER IH SCH ×4 (04:35→21:23)
[2021-08-17] MEDS: Budesonide/Formoterol 160/4.5 1 PUFF INH IH SCH ×2 (08:00→21:23)
[2021-08-17] MEDS: Insulin LISPRO 300 UNITS/3 ML VIAL SUBQ SCH ×4 (09:14→20:42)
[2021-08-17] MEDS: Metoprolol XL (24 HR) Succ 25 MG TAB.ER.24H PO SCH (09:39)
[2021-08-17] MEDS: allopurinoL 300 MG TABLET PO SCH (09:39)
[2021-08-17] MEDS: Aspirin 81 MG TAB.CHEW PO SCH (09:39)
[2021-08-17] MEDS: QUEtiapine Fumarate 25 MG TABLET PO SCH ×2 (09:39→20:35)
[2021-08-17] MEDS: Loratadine 10 MG TABLET PO SCH (09:40)
[2021-08-17] MEDS: Apixaban 5 MG TABLET PO SCH ×2 (09:40→20:35)
[2021-08-17] MEDS: dexAMETHasone 4 MG TABLET PO SCH (09:40)
[2021-08-17] MEDS: Chlorhexidine Rinse 15 ML MOUTHWASH MM SCH ×2 (09:40→20:35)
[2021-08-17] MEDS: *HR* Amiodarone 200 MG TABLET PO SCH (09:40)
[2021-08-17] MEDS: Saline Nasal Spray 44 ML BOTTLE NS PRN (09:40)
[2021-08-17] MEDS: polyethylene glycoL 3350 17 GM POWD.PACK PO SCH (09:41)
[2021-08-17] MEDS: *HR* HYDROcodone/Acet 5/325 mg TABLET PO PRN ×2 (13:47→20:34)
[2021-08-17] MEDS: Fluticasone Propionate Nasal 50 MCG/SPRAY BOTTLE NS SCH (13:49)
[2021-08-18] MEDS: *HR* HYDROcodone/Acet 5/325 mg TABLET PO PRN ×3 (01:00→19:52)
[2021-08-18 03:37] LABS: Hematocrit 29.8 % (35.3-44.9); Hemoglobin 8.9 g/dL (11.5-15.4); Mean Corpuscular HGB Conc 29.9 g/dL (31.6-35.5); Mean Corpuscular Hemoglobin 29.7 pg (28.0-33.3); Mean Corpuscular Volume 99.3 fL (83.0-100.0); Mean Platelet Volume 10.8 fL (9.4-12.4); Platelet Count 282 K/mcL (140-400); Red Cell Distribution Width 16.4 % (11.5-14.5); White Blood Count 9.4 K/mcL (4.3-11.1)
[2021-08-18 03:53] LABS: BUN/Creatinine Ratio 41 (6-26); Blood Urea Nitrogen 33 mg/dL (8-23); Calcium 8.8 mg/dL (8.6-10.3); Carbon Dioxide 26 mEq/L (23-29); Chloride 106 mEq/L (98-107); Glucose 147 mg/dL (70-105); Osmolality,Calculated 298 (280-300); Potassium 4.6 mEq/L (3.5-5.1); Sodium 139 mEq/L (136-145); eGFR For African Americans > 60 (> 60); eGFR For Non-African Americans > 60 (> 60)
[2021-08-18] MEDS: Ipratropium 1 PUFF INHALER IH SCH ×4 (04:03→21:50)
[2021-08-18] MEDS: *HR* LORazepam 0.5 MG TABLET PO PRN ×2 (04:17→23:40)
[2021-08-18] MEDS: allopurinoL 300 MG TABLET PO SCH (08:16)
[2021-08-18] MEDS: dexAMETHasone 4 MG TABLET PO SCH (08:16)
[2021-08-18] MEDS: Loratadine 10 MG TABLET PO SCH (08:16)
[2021-08-18] MEDS: *HR* Amiodarone 200 MG TABLET PO SCH (08:16)
[2021-08-18] MEDS: Apixaban 5 MG TABLET PO SCH ×2 (08:16→19:52)
[2021-08-18] MEDS: Metoprolol XL (24 HR) Succ 25 MG TAB.ER.24H PO SCH (08:17)
[2021-08-18] MEDS: Fluticasone Propionate Nasal 50 MCG/SPRAY BOTTLE NS SCH (08:17)
[2021-08-18] MEDS: polyethylene glycoL 3350 17 GM POWD.PACK PO SCH (08:17)
[2021-08-18] MEDS: Insulin LISPRO 300 UNITS/3 ML VIAL SUBQ SCH ×4 (08:17→20:46)
[2021-08-18] MEDS: Chlorhexidine Rinse 15 ML MOUTHWASH MM SCH ×2 (08:17→19:52)
[2021-08-18] MEDS: QUEtiapine Fumarate 25 MG TABLET PO SCH ×2 (08:17→19:53)
[2021-08-18] MEDS: Aspirin 81 MG TAB.CHEW PO SCH (08:17)
[2021-08-18] MEDS: Budesonide/Formoterol 160/4.5 1 PUFF INH IH SCH ×2 (08:23→21:50)
[2021-08-18] MEDS: Dexmedetomidine HCl 400 MCG/100 ML MLS IVC SCH ×2 (09:17→18:29)
[2021-08-18] MEDS: Melatonin 3 MG TABLET PO PRN (19:52)
[2021-08-19] MEDS: Dexmedetomidine HCl 400 MCG/100 ML MLS IVC SCH ×3 (01:11→17:44)
[2021-08-19] MEDS: *HR* HYDROcodone/Acet 5/325 mg TABLET PO PRN ×3 (02:08→12:02)
[2021-08-19 02:28] LABS: Hematocrit 29.4 % (35.3-44.9); Hemoglobin 8.9 g/dL (11.5-15.4); Mean Corpuscular HGB Conc 30.3 g/dL (31.6-35.5); Mean Corpuscular Hemoglobin 29.8 pg (28.0-33.3); Mean Corpuscular Volume 98.3 fL (83.0-100.0); Mean Platelet Volume 10.5 fL (9.4-12.4); Platelet Count 262 K/mcL (140-400); Red Blood Count 2.99 M/mcL (3.82-4.97); Red Cell Distribution Width 16.4 % (11.5-14.5)
[2021-08-19 02:40] LABS: BUN/Creatinine Ratio 42 (6-26); Blood Urea Nitrogen 30 mg/dL (8-23); Calcium 8.9 mg/dL (8.6-10.3); Carbon Dioxide 27 mEq/L (23-29); Chloride 106 mEq/L (98-107); Glucose 98 mg/dL (70-105); Osmolality,Calculated 294 (280-300); Potassium 4.6 mEq/L (3.5-5.1); Sodium 139 mEq/L (136-145); eGFR For African Americans > 60 (> 60); eGFR For Non-African Americans > 60 (> 60)
[2021-08-19] MEDS: Ipratropium 1 PUFF INHALER IH SCH ×4 (04:23→20:12)
[2021-08-19] MEDS: Budesonide/Formoterol 160/4.5 1 PUFF INH IH SCH ×2 (07:56→20:12)
[2021-08-19] MEDS: polyethylene glycoL 3350 17 GM POWD.PACK PO SCH (09:29)
[2021-08-19] MEDS: Chlorhexidine Rinse 15 ML MOUTHWASH MM SCH ×2 (09:29→20:35)
[2021-08-19] MEDS: Fluticasone Propionate Nasal 50 MCG/SPRAY BOTTLE NS SCH (09:29)
[2021-08-19] MEDS: Metoprolol XL (24 HR) Succ 25 MG TAB.ER.24H PO SCH (09:32)
[2021-08-19] MEDS: Apixaban 5 MG TABLET PO SCH ×2 (09:32→20:35)
[2021-08-19] MEDS: QUEtiapine Fumarate 25 MG TABLET PO SCH ×2 (09:32→20:35)
[2021-08-19] MEDS: allopurinoL 300 MG TABLET PO SCH (09:32)
[2021-08-19] MEDS: Aspirin 81 MG TAB.CHEW PO SCH (09:32)
[2021-08-19] MEDS: Loratadine 10 MG TABLET PO SCH (09:33)
[2021-08-19] MEDS: *HR* Amiodarone 200 MG TABLET PO SCH (09:33)
[2021-08-19] MEDS: *HR* LORazepam 0.5 MG TABLET PO PRN ×3 (09:33→16:36)
[2021-08-19] MEDS: dexAMETHasone 4 MG TABLET PO SCH (09:33)
[2021-08-19] MEDS: Insulin LISPRO 300 UNITS/3 ML VIAL SUBQ SCH ×4 (09:35→20:40)
[2021-08-19] MEDS: *HR* OxyCODONE Immed Rel 5 MG TABLET PO PRN ×2 (16:36→23:39)
[2021-08-20 01:43] LABS: Hematocrit 30.1 % (35.3-44.9); Hemoglobin 9.1 g/dL (11.5-15.4); Mean Corpuscular HGB Conc 30.2 g/dL (31.6-35.5); Mean Corpuscular Hemoglobin 29.8 pg (28.0-33.3); Mean Corpuscular Volume 98.7 fL (83.0-100.0); Mean Platelet Volume 10.6 fL (9.4-12.4); Platelet Count 239 K/mcL (140-400); Red Blood Count 3.05 M/mcL (3.82-4.97); Red Cell Distribution Width 16.9 % (11.5-14.5)
[2021-08-20 02:00] LABS: BUN/Creatinine Ratio 46 (6-26); Blood Urea Nitrogen 34 mg/dL (8-23); Calcium 8.5 mg/dL (8.6-10.3); Carbon Dioxide 27 mEq/L (23-29); Chloride 106 mEq/L (98-107); Glucose 128 mg/dL (70-105); Osmolality,Calculated 299 (280-300); Sodium 140 mEq/L (136-145); eGFR For African Americans > 60 (> 60); eGFR For Non-African Americans > 60 (> 60)
[2021-08-20] MEDS: Ipratropium 1 PUFF INHALER IH SCH ×4 (03:59→20:03)
[2021-08-20] MEDS: *HR* HYDROcodone/Acet 5/325 mg TABLET PO PRN ×3 (04:23→13:40)
[2021-08-20] MEDS: Dexmedetomidine HCl 400 MCG/100 ML MLS IVC SCH ×2 (04:42→20:45)
[2021-08-20] MEDS: Budesonide/Formoterol 160/4.5 1 PUFF INH IH SCH ×2 (07:58→20:03)
[2021-08-20] MEDS: Insulin LISPRO 300 UNITS/3 ML VIAL SUBQ SCH ×4 (10:13→21:00)
[2021-08-20] MEDS: Metoprolol XL (24 HR) Succ 25 MG TAB.ER.24H PO SCH (10:14)
[2021-08-20] MEDS: allopurinoL 300 MG TABLET PO SCH (10:14)
[2021-08-20] MEDS: Apixaban 5 MG TABLET PO SCH ×2 (10:14→20:47)
[2021-08-20] MEDS: dexAMETHasone 4 MG TABLET PO SCH (10:15)
[2021-08-20] MEDS: Aspirin 81 MG TAB.CHEW PO SCH (10:15)
[2021-08-20] MEDS: polyethylene glycoL 3350 17 GM POWD.PACK PO SCH (10:15)
[2021-08-20] MEDS: *HR* Amiodarone 200 MG TABLET PO SCH (10:15)
[2021-08-20] MEDS: Loratadine 10 MG TABLET PO SCH (10:15)
[2021-08-20] MEDS: *HR* LORazepam 0.5 MG TABLET PO PRN ×3 (10:15→18:30)
[2021-08-20] MEDS: Fluticasone Propionate Nasal 50 MCG/SPRAY BOTTLE NS SCH (10:16)
[2021-08-20] MEDS: Chlorhexidine Rinse 15 ML MOUTHWASH MM SCH ×2 (10:16→20:48)
[2021-08-20] MEDS: QUEtiapine Fumarate 25 MG TABLET PO SCH ×2 (10:24→20:48)
[2021-08-20] MEDS: *HR* OxyCODONE Immed Rel 5 MG TABLET PO PRN (18:30)
[2021-08-20] MEDS: Melatonin 3 MG TABLET PO PRN (20:47)
[2021-08-20] MEDS: Ipratropium/Albuterol Neb 3 ML IH SCH (21:53)
[2021-08-21] MEDS: *HR* LORazepam 0.5 MG TABLET PO PRN ×4 (03:24→17:16)
[2021-08-21] MEDS: Ipratropium/Albuterol Neb 3 ML IH SCH ×4 (04:18→20:57)
[2021-08-21 04:26] LABS: Hematocrit 30.6 % (35.3-44.9); Hemoglobin 9.2 g/dL (11.5-15.4); Mean Corpuscular HGB Conc 30.1 g/dL (31.6-35.5); Mean Corpuscular Hemoglobin 30.2 pg (28.0-33.3); Mean Corpuscular Volume 100.3 fL (83.0-100.0); Mean Platelet Volume 10.7 fL (9.4-12.4); Platelet Count 216 K/mcL (140-400); Red Blood Count 3.05 M/mcL (3.82-4.97); Red Cell Distribution Width 16.9 % (11.5-14.5); White Blood Count 9.2 K/mcL (4.3-11.1)
[2021-08-21 04:44] LABS: BUN/Creatinine Ratio 45 (6-26); Blood Urea Nitrogen 34 mg/dL (8-23); Calcium 8.9 mg/dL (8.6-10.3); Carbon Dioxide 26 mEq/L (23-29); Chloride 108 mEq/L (98-107); Glucose 185 mg/dL (70-105); Osmolality,Calculated 298 (280-300); Potassium 4.3 mEq/L (3.5-5.1); Sodium 138 mEq/L (136-145); eGFR For African Americans > 60 (> 60); eGFR For Non-African Americans > 60 (> 60)
[2021-08-21] MEDS: Dexmedetomidine HCl 400 MCG/100 ML MLS IVC SCH ×2 (06:51→17:13)
[2021-08-21] MEDS: Metoprolol XL (24 HR) Succ 25 MG TAB.ER.24H PO SCH (09:43)
[2021-08-21] MEDS: *HR* OxyCODONE Immed Rel 5 MG TABLET PO PRN ×2 (09:43→17:02)
[2021-08-21] MEDS: QUEtiapine Fumarate 25 MG TABLET PO SCH ×2 (09:43→19:36)
[2021-08-21] MEDS: Insulin LISPRO 300 UNITS/3 ML VIAL SUBQ SCH ×4 (09:43→20:07)
[2021-08-21] MEDS: *HR* Amiodarone 200 MG TABLET PO SCH (09:43)
[2021-08-21] MEDS: Fluticasone Propionate Nasal 50 MCG/SPRAY BOTTLE NS SCH (09:43)
[2021-08-21] MEDS: Chlorhexidine Rinse 15 ML MOUTHWASH MM SCH ×2 (09:43→19:36)
[2021-08-21] MEDS: polyethylene glycoL 3350 17 GM POWD.PACK PO SCH (09:43)
[2021-08-21] MEDS: dexAMETHasone 4 MG TABLET PO SCH (09:44)
[2021-08-21] MEDS: Aspirin 81 MG TAB.CHEW PO SCH (09:44)
[2021-08-21] MEDS: Apixaban 5 MG TABLET PO SCH ×2 (09:44→19:36)
[2021-08-21] MEDS: Loratadine 10 MG TABLET PO SCH (09:44)
[2021-08-21] MEDS: allopurinoL 300 MG TABLET PO SCH (09:44)
[2021-08-21] MEDS: Budesonide/Formoterol 160/4.5 1 PUFF INH IH SCH ×2 (10:12→20:56)
[2021-08-21] MEDS: *HR* HYDROcodone/Acet 5/325 mg TABLET PO PRN ×2 (13:19→19:36)
[2021-08-21] MEDS: Saline Nasal Spray 44 ML BOTTLE NS PRN (20:06)
[2021-08-22] MEDS: *HR* LORazepam 0.5 MG TABLET PO PRN ×4 (00:34→22:51)
[2021-08-22] MEDS: *HR* OxyCODONE Immed Rel 5 MG TABLET PO PRN ×4 (00:34→22:51)
[2021-08-22] MEDS: Dexmedetomidine HCl 400 MCG/100 ML MLS IVC SCH ×3 (04:13→17:53)
[2021-08-22] MEDS: Ipratropium/Albuterol Neb 3 ML IH SCH ×4 (04:31→20:52)
[2021-08-22] MEDS: Fluticasone Propionate Nasal 50 MCG/SPRAY BOTTLE NS SCH (07:49)
[2021-08-22] MEDS: *HR* Amiodarone 200 MG TABLET PO SCH (07:50)
[2021-08-22] MEDS: Apixaban 5 MG TABLET PO SCH ×2 (07:50→20:12)
[2021-08-22] MEDS: dexAMETHasone 4 MG TABLET PO SCH (07:50)
[2021-08-22] MEDS: Aspirin 81 MG TAB.CHEW PO SCH (07:50)
[2021-08-22] MEDS: Chlorhexidine Rinse 15 ML MOUTHWASH MM SCH ×2 (07:50→20:12)
[2021-08-22] MEDS: allopurinoL 300 MG TABLET PO SCH (07:50)
[2021-08-22] MEDS: QUEtiapine Fumarate 25 MG TABLET PO SCH ×2 (07:51→20:12)
[2021-08-22] MEDS: Metoprolol XL (24 HR) Succ 25 MG TAB.ER.24H PO SCH (07:51)
[2021-08-22] MEDS: Loratadine 10 MG TABLET PO SCH (07:51)
[2021-08-22] MEDS: Insulin LISPRO 300 UNITS/3 ML VIAL SUBQ SCH ×4 (07:58→19:45)
[2021-08-22] MEDS: polyethylene glycoL 3350 17 GM POWD.PACK PO SCH (07:58)
[2021-08-22] MEDS: Budesonide/Formoterol 160/4.5 1 PUFF INH IH SCH ×2 (08:23→20:52)
[2021-08-22] MEDS: Melatonin 3 MG TABLET PO PRN (20:12)
[2021-08-23 02:11] LABS: Hematocrit 30.4 % (35.3-44.9); Hemoglobin 9.3 g/dL (11.5-15.4); Mean Corpuscular HGB Conc 30.6 g/dL (31.6-35.5); Mean Corpuscular Hemoglobin 30.6 pg (28.0-33.3); Mean Platelet Volume 10.4 fL (9.4-12.4); Platelet Count 197 K/mcL (140-400); Red Blood Count 3.04 M/mcL (3.82-4.97); Red Cell Distribution Width 16.9 % (11.5-14.5); White Blood Count 8.1 K/mcL (4.3-11.1)
[2021-08-23 02:23] LABS: BUN/Creatinine Ratio 29 (6-26); Blood Urea Nitrogen 29 mg/dL (8-23); Carbon Dioxide 25 mEq/L (23-29); Chloride 107 mEq/L (98-107); Glucose 123 mg/dL (70-105); Osmolality,Calculated 293 (280-300); Potassium 4.4 mEq/L (3.5-5.1); Sodium 138 mEq/L (136-145); eGFR For African Americans > 60 (> 60); eGFR For Non-African Americans 55 (> 60)
[2021-08-23] MEDS: *HR* OxyCODONE Immed Rel 5 MG TABLET PO PRN ×4 (04:31→23:42)
[2021-08-23] MEDS: *HR* LORazepam 0.5 MG TABLET PO PRN (04:31)
[2021-08-23] MEDS: Ipratropium/Albuterol Neb 3 ML IH SCH ×4 (04:41→20:21)
[2021-08-23] MEDS: Budesonide/Formoterol 160/4.5 1 PUFF INH IH SCH ×2 (07:42→20:21)
[2021-08-23] MEDS: Dexmedetomidine HCl 400 MCG/100 ML MLS IVC SCH ×2 (08:03→10:41)
[2021-08-23] MEDS: allopurinoL 300 MG TABLET PO SCH (08:04)
[2021-08-23] MEDS: Aspirin 81 MG TAB.CHEW PO SCH (08:04)
[2021-08-23] MEDS: Loratadine 10 MG TABLET PO SCH (08:04)
[2021-08-23] MEDS: *HR* Amiodarone 200 MG TABLET PO SCH (08:04)
[2021-08-23] MEDS: QUEtiapine Fumarate 25 MG TABLET PO SCH ×2 (08:04→19:42)
[2021-08-23] MEDS: dexAMETHasone 4 MG TABLET PO SCH (08:04)
[2021-08-23] MEDS: Apixaban 5 MG TABLET PO SCH ×2 (08:04→19:42)
[2021-08-23] MEDS: Fluticasone Propionate Nasal 50 MCG/SPRAY BOTTLE NS SCH (08:05)
[2021-08-23] MEDS: polyethylene glycoL 3350 17 GM POWD.PACK PO SCH (08:05)
[2021-08-23] MEDS: Chlorhexidine Rinse 15 ML MOUTHWASH MM SCH ×2 (08:05→19:42)
[2021-08-23] MEDS: Metoprolol XL (24 HR) Succ 25 MG TAB.ER.24H PO SCH (08:05)
[2021-08-23] MEDS: Insulin LISPRO 300 UNITS/3 ML VIAL SUBQ SCH ×4 (08:24→19:45)
[2021-08-23] MEDS: Melatonin 3 MG TABLET PO PRN (19:42)
[2021-08-24 03:38] LABS: Basophils # 0.1 K/mcL (0.0-0.2); Basophils % 0.6 %; Eosinophils # 0.4 K/mcL (0.0-0.6); Eosinophils % 4.5 %; Hematocrit 31.4 % (35.3-44.9); Hemoglobin 9.6 g/dL (11.5-15.4); Immature Granulocytes % 1.4 % (0-4); Lymphocytes # 1.7 K/mcL (0.6-4.6); Lymphocytes % 19.9 %; Mean Corpuscular HGB Conc 30.6 g/dL (31.6-35.5); Mean Corpuscular Hemoglobin 30.8 pg (28.0-33.3); Mean Corpuscular Volume 100.6 fL (83.0-100.0); Mean Platelet Volume 10.6 fL (9.4-12.4); Monocytes # 0.6 K/mcL (0.0-1.3); Monocytes % 6.8 %; Neutrophils # 5.9 K/mcL (1.6-8.9); Platelet Count 188 K/mcL (140-400); Red Blood Count 3.12 M/mcL (3.82-4.97); Red Cell Distribution Width 17.2 % (11.5-14.5); Segmented Neutrophils % 66.8 %; White Blood Count 8.8 K/mcL (4.3-11.1)
[2021-08-24 03:59] LABS: BUN/Creatinine Ratio 41 (6-26); Blood Urea Nitrogen 32 mg/dL (8-23); Carbon Dioxide 25 mEq/L (23-29); Chloride 110 mEq/L (98-107); Glucose 141 mg/dL (70-105); Osmolality,Calculated 303 (280-300); Sodium 142 mEq/L (136-145); eGFR For African Americans > 60 (> 60); eGFR For Non-African Americans > 60 (> 60)
[2021-08-24] MEDS: Ipratropium/Albuterol Neb 3 ML IH SCH ×4 (04:08→21:11)
[2021-08-24] MEDS: *HR* OxyCODONE Immed Rel 5 MG TABLET PO PRN ×5 (04:49→22:20)
[2021-08-24] MEDS: Budesonide/Formoterol 160/4.5 1 PUFF INH IH SCH ×2 (07:44→21:11)
[2021-08-24] MEDS: Loratadine 10 MG TABLET PO SCH (08:57)
[2021-08-24] MEDS: dexAMETHasone 4 MG TABLET PO SCH (08:57)
[2021-08-24] MEDS: *HR* LORazepam 0.5 MG TABLET PO PRN (08:57)
[2021-08-24] MEDS: Aspirin 81 MG TAB.CHEW PO SCH (08:57)
[2021-08-24] MEDS: Apixaban 5 MG TABLET PO SCH ×2 (08:57→20:59)
[2021-08-24] MEDS: *HR* Amiodarone 200 MG TABLET PO SCH (08:57)
[2021-08-24] MEDS: QUEtiapine Fumarate 25 MG TABLET PO SCH ×2 (08:58→20:59)
[2021-08-24] MEDS: Metoprolol XL (24 HR) Succ 25 MG TAB.ER.24H PO SCH (08:58)
[2021-08-24] MEDS: allopurinoL 300 MG TABLET PO SCH (08:58)
[2021-08-24] MEDS: Chlorhexidine Rinse 15 ML MOUTHWASH MM SCH ×2 (09:01→21:00)
[2021-08-24] MEDS: Insulin LISPRO 300 UNITS/3 ML VIAL SUBQ SCH ×4 (09:01→20:53)
[2021-08-24] MEDS: polyethylene glycoL 3350 17 GM POWD.PACK PO SCH (09:01)
[2021-08-24] MEDS: Fluticasone Propionate Nasal 50 MCG/SPRAY BOTTLE NS SCH (09:01)
[2021-08-24] MEDS: Melatonin 3 MG TABLET PO PRN (22:20)
[2021-08-25] MEDS: Ipratropium/Albuterol Neb 3 ML IH SCH ×4 (03:18→19:37)
[2021-08-25] MEDS: *HR* OxyCODONE Immed Rel 5 MG TABLET PO PRN ×5 (04:16→20:13)
[2021-08-25] MEDS: Insulin LISPRO 300 UNITS/3 ML VIAL SUBQ SCH ×3 (08:08→16:06)
[2021-08-25] MEDS: Loratadine 10 MG TABLET PO SCH (08:55)
[2021-08-25] MEDS: Aspirin 81 MG TAB.CHEW PO SCH (08:55)
[2021-08-25] MEDS: dexAMETHasone 4 MG TABLET PO SCH (08:55)
[2021-08-25] MEDS: Metoprolol XL (24 HR) Succ 25 MG TAB.ER.24H PO SCH (08:56)
[2021-08-25] MEDS: *HR* Amiodarone 200 MG TABLET PO SCH (08:56)
[2021-08-25] MEDS: Apixaban 5 MG TABLET PO SCH ×2 (08:56→20:13)
[2021-08-25] MEDS: QUEtiapine Fumarate 25 MG TABLET PO SCH ×2 (08:56→20:15)
[2021-08-25] MEDS: Chlorhexidine Rinse 15 ML MOUTHWASH MM SCH ×2 (08:56→20:14)
[2021-08-25] MEDS: allopurinoL 300 MG TABLET PO SCH (08:56)
[2021-08-25] MEDS: polyethylene glycoL 3350 17 GM POWD.PACK PO SCH (08:57)
[2021-08-25] MEDS: Fluticasone Propionate Nasal 50 MCG/SPRAY BOTTLE NS SCH (08:57)
[2021-08-25 09:46] LABS: Basophils % 0.5 %; Eosinophils # 0.6 K/mcL (0.0-0.6); Eosinophils % 7.3 %; Hematocrit 32.7 % (35.3-44.9); Hemoglobin 9.8 g/dL (11.5-15.4); Immature Granulocytes % 1.1 % (0-4); Lymphocytes # 1.7 K/mcL (0.6-4.6); Lymphocytes % 19.7 %; Mean Corpuscular Hemoglobin 30.7 pg (28.0-33.3); Mean Corpuscular Volume 102.5 fL (83.0-100.0); Mean Platelet Volume 10.6 fL (9.4-12.4); Monocytes # 0.6 K/mcL (0.0-1.3); Monocytes % 7.5 %; Neutrophils # 5.4 K/mcL (1.6-8.9); Platelet Count 191 K/mcL (140-400); Red Blood Count 3.19 M/mcL (3.82-4.97); Red Cell Distribution Width 17.2 % (11.5-14.5); Segmented Neutrophils % 63.9 %; White Blood Count 8.4 K/mcL (4.3-11.1)
[2021-08-25 10:05] LABS: BUN/Creatinine Ratio 36 (6-26); Blood Urea Nitrogen 27 mg/dL (8-23); Calcium 9.4 mg/dL (8.6-10.3); Carbon Dioxide 25 mEq/L (23-29); Chloride 110 mEq/L (98-107); Glucose 118 mg/dL (70-105); Osmolality,Calculated 302 (280-300); Potassium 3.8 mEq/L (3.5-5.1); Sodium 143 mEq/L (136-145); eGFR For African Americans > 60 (> 60); eGFR For Non-African Americans > 60 (> 60)
[2021-08-25] MEDS: Budesonide/Formoterol 160/4.5 1 PUFF INH IH SCH ×2 (10:47→19:37)
[2021-08-26] MEDS: *HR* OxyCODONE Immed Rel 5 MG TABLET PO PRN ×4 (00:37→21:05)
[2021-08-26 01:56] LABS: Basophils % 0.5 %; Eosinophils # 0.4 K/mcL (0.0-0.6); Eosinophils % 4.8 %; Hematocrit 30.4 % (35.3-44.9); Hemoglobin 9.2 g/dL (11.5-15.4); Immature Granulocytes % 1.1 % (0-4); Lymphocytes # 1.6 K/mcL (0.6-4.6); Lymphocytes % 19.5 %; Mean Corpuscular HGB Conc 30.3 g/dL (31.6-35.5); Mean Corpuscular Hemoglobin 30.7 pg (28.0-33.3); Mean Corpuscular Volume 101.3 fL (83.0-100.0); Mean Platelet Volume 10.5 fL (9.4-12.4); Monocytes # 0.6 K/mcL (0.0-1.3); Monocytes % 7.2 %; Neutrophils # 5.5 K/mcL (1.6-8.9); Platelet Count 192 K/mcL (140-400); Red Cell Distribution Width 17.1 % (11.5-14.5); Segmented Neutrophils % 66.9 %; White Blood Count 8.2 K/mcL (4.3-11.1)
[2021-08-26 02:16] LABS: BUN/Creatinine Ratio 42 (6-26); Blood Urea Nitrogen 33 mg/dL (8-23); Calcium 8.7 mg/dL (8.6-10.3); Carbon Dioxide 24 mEq/L (23-29); Chloride 110 mEq/L (98-107); Glucose 127 mg/dL (70-105); Osmolality,Calculated 303 (280-300); Potassium 4.2 mEq/L (3.5-5.1); Sodium 142 mEq/L (136-145); eGFR For African Americans > 60 (> 60); eGFR For Non-African Americans > 60 (> 60)
[2021-08-26] MEDS: Insulin LISPRO 300 UNITS/3 ML VIAL SUBQ SCH ×5 (03:49→21:01)
[2021-08-26] MEDS: Ipratropium/Albuterol Neb 3 ML IH SCH ×4 (03:50→20:45)
[2021-08-26] MEDS: Budesonide/Formoterol 160/4.5 1 PUFF INH IH SCH ×2 (08:07→20:45)
[2021-08-26] MEDS: allopurinoL 300 MG TABLET PO SCH (09:26)
[2021-08-26] MEDS: Apixaban 5 MG TABLET PO SCH ×2 (09:26→21:05)
[2021-08-26] MEDS: Loratadine 10 MG TABLET PO SCH (09:26)
[2021-08-26] MEDS: Metoprolol XL (24 HR) Succ 25 MG TAB.ER.24H PO SCH (09:26)
[2021-08-26] MEDS: *HR* LORazepam 0.5 MG TABLET PO PRN ×2 (09:26→15:43)
[2021-08-26] MEDS: Aspirin 81 MG TAB.CHEW PO SCH (09:26)
[2021-08-26] MEDS: *HR* Amiodarone 200 MG TABLET PO SCH (09:26)
[2021-08-26] MEDS: Fluticasone Propionate Nasal 50 MCG/SPRAY BOTTLE NS SCH (09:27)
[2021-08-26] MEDS: Chlorhexidine Rinse 15 ML MOUTHWASH MM SCH ×2 (09:27→21:07)
[2021-08-26] MEDS: polyethylene glycoL 3350 17 GM POWD.PACK PO SCH (09:27)
[2021-08-26] MEDS: dexAMETHasone 4 MG TABLET PO SCH (09:27)
[2021-08-26] MEDS: Saline Nasal Spray 44 ML BOTTLE NS PRN (09:27)
[2021-08-26] MEDS: QUEtiapine Fumarate 25 MG TABLET PO SCH ×2 (09:27→21:05)
[2021-08-27] MEDS: *HR* OxyCODONE Immed Rel 5 MG TABLET PO PRN ×3 (02:47→12:25)
[2021-08-27 02:51] LABS: BUN/Creatinine Ratio 36 (6-26); Blood Urea Nitrogen 30 mg/dL (8-23); Calcium 9.2 mg/dL (8.6-10.3); Carbon Dioxide 23 mEq/L (23-29); Chloride 110 mEq/L (98-107); Glucose 114 mg/dL (70-105); Magnesium 1.7 mg/dL (1.6-2.6); Osmolality,Calculated 301 (280-300); Phosphorous 2.8 mg/dL (2.7-4.5); Potassium 4.2 mEq/L (3.5-5.1); Sodium 142 mEq/L (136-145); eGFR For African Americans > 60 (> 60); eGFR For Non-African Americans > 60 (> 60)
[2021-08-27] MEDS: Ipratropium/Albuterol Neb 3 ML IH SCH ×4 (03:34→21:09)
[2021-08-27] MEDS: Budesonide/Formoterol 160/4.5 1 PUFF INH IH SCH ×2 (07:43→21:09)
[2021-08-27] MEDS: allopurinoL 300 MG TABLET PO SCH (08:06)
[2021-08-27] MEDS: Loratadine 10 MG TABLET PO SCH (08:06)
[2021-08-27] MEDS: Apixaban 5 MG TABLET PO SCH ×2 (08:07→20:12)
[2021-08-27] MEDS: Metoprolol XL (24 HR) Succ 25 MG TAB.ER.24H PO SCH (08:07)
[2021-08-27] MEDS: *HR* Amiodarone 200 MG TABLET PO SCH (08:07)
[2021-08-27] MEDS: Insulin LISPRO 300 UNITS/3 ML VIAL SUBQ SCH ×4 (08:07→20:07)
[2021-08-27] MEDS: Aspirin 81 MG TAB.CHEW PO SCH (08:07)
[2021-08-27] MEDS: Chlorhexidine Rinse 15 ML MOUTHWASH MM SCH ×2 (08:08→20:14)
[2021-08-27] MEDS: Fluticasone Propionate Nasal 50 MCG/SPRAY BOTTLE NS SCH (08:08)
[2021-08-27] MEDS: polyethylene glycoL 3350 17 GM POWD.PACK PO SCH (08:08)
[2021-08-27] MEDS: *HR* LORazepam 0.5 MG TABLET PO PRN ×2 (08:12→20:12)
[2021-08-27] MEDS: Acetaminophen 325 MG TABLET PO PRN ×2 (14:38→20:12)
[2021-08-27] MEDS: QUEtiapine Fumarate 25 MG TABLET PO SCH (20:11)
[2021-08-28] MEDS: *HR* OxyCODONE Immed Rel 5 MG TABLET PO PRN ×4 (01:11→20:26)
[2021-08-28] MEDS: *HR* LORazepam 0.5 MG TABLET PO PRN ×3 (01:11→20:26)
[2021-08-28] MEDS: Ipratropium/Albuterol Neb 3 ML IH SCH ×2 (04:21→07:55)
[2021-08-28] MEDS: Chlorhexidine Rinse 15 ML MOUTHWASH MM SCH ×2 (07:06→20:26)
[2021-08-28] MEDS: Loratadine 10 MG TABLET PO SCH (07:18)
[2021-08-28] MEDS: polyethylene glycoL 3350 17 GM POWD.PACK PO SCH (07:18)
[2021-08-28] MEDS: Apixaban 5 MG TABLET PO SCH ×2 (07:18→20:26)
[2021-08-28] MEDS: Aspirin 81 MG TAB.CHEW PO SCH (07:18)
[2021-08-28] MEDS: Metoprolol XL (24 HR) Succ 25 MG TAB.ER.24H PO SCH (07:18)
[2021-08-28] MEDS: Fluticasone Propionate Nasal 50 MCG/SPRAY BOTTLE NS SCH (07:19)
[2021-08-28] MEDS: *HR* Amiodarone 200 MG TABLET PO SCH (07:19)
[2021-08-28] MEDS: allopurinoL 300 MG TABLET PO SCH (07:19)
[2021-08-28] MEDS: Insulin LISPRO 300 UNITS/3 ML VIAL SUBQ SCH ×4 (07:25→20:27)
[2021-08-28] MEDS: Budesonide/Formoterol 160/4.5 1 PUFF INH IH SCH ×2 (07:55→20:13)
[2021-08-28] MEDS: Acetaminophen 325 MG TABLET PO PRN (11:48)
[2021-08-28] MEDS ORDERED: Ipratropium/Albuterol Neb 3 ML IH PRN (12:58)
[2021-08-28 14:26] LABS: Basophils # 0.1 K/mcL (0.0-0.2); Basophils % 0.5 %; Eosinophils # 0.9 K/mcL (0.0-0.6); Eosinophils % 8.8 %; Hematocrit 33.3 % (35.3-44.9); Immature Granulocytes % 0.7 % (0-4); Lymphocytes # 1.7 K/mcL (0.6-4.6); Lymphocytes % 16.8 %; Mean Corpuscular Hemoglobin 30.4 pg (28.0-33.3); Mean Corpuscular Volume 101.2 fL (83.0-100.0); Mean Platelet Volume 9.8 fL (9.4-12.4); Monocytes # 0.7 K/mcL (0.0-1.3); Monocytes % 7.1 %; Neutrophils # 6.6 K/mcL (1.6-8.9); Platelet Count 192 K/mcL (140-400); Red Blood Count 3.29 M/mcL (3.82-4.97); Red Cell Distribution Width 16.7 % (11.5-14.5); Segmented Neutrophils % 66.1 %
[2021-08-28 14:43] LABS: BUN/Creatinine Ratio 37 (6-26); Blood Urea Nitrogen 29 mg/dL (8-23); Calcium 9.1 mg/dL (8.6-10.3); Carbon Dioxide 25 mEq/L (23-29); Chloride 110 mEq/L (98-107); Glucose 125 mg/dL (70-105); Osmolality,Calculated 303 (280-300); Potassium 4.2 mEq/L (3.5-5.1); Sodium 143 mEq/L (136-145); eGFR For African Americans > 60 (> 60); eGFR For Non-African Americans > 60 (> 60)
[2021-08-28] MEDS: QUEtiapine Fumarate 25 MG TABLET PO SCH (20:26)
[2021-08-29] MEDS: Acetaminophen 325 MG TABLET PO PRN (02:16)
[2021-08-29] MEDS: *HR* OxyCODONE Immed Rel 5 MG TABLET PO PRN ×4 (03:32→20:26)
[2021-08-29] MEDS: *HR* LORazepam 0.5 MG TABLET PO PRN ×2 (03:32→20:26)
[2021-08-29 04:31] LABS: Basophils % 0.5 %; Eosinophils # 0.8 K/mcL (0.0-0.6); Eosinophils % 9.5 %; Hematocrit 31.9 % (35.3-44.9); Immature Granulocytes % 1.3 % (0-4); Lymphocytes # 1.8 K/mcL (0.6-4.6); Mean Corpuscular HGB Conc 31.3 g/dL (31.6-35.5); Mean Corpuscular Hemoglobin 31.3 pg (28.0-33.3); Mean Corpuscular Volume 99.7 fL (83.0-100.0); Monocytes # 0.7 K/mcL (0.0-1.3); Monocytes % 7.9 %; Neutrophils # 5.1 K/mcL (1.6-8.9); Platelet Count 196 K/mcL (140-400); Red Cell Distribution Width 16.5 % (11.5-14.5); Segmented Neutrophils % 59.8 %; White Blood Count 8.5 K/mcL (4.3-11.1)
[2021-08-29 04:50] LABS: BUN/Creatinine Ratio 30 (6-26); Blood Urea Nitrogen 26 mg/dL (8-23); Calcium 9.1 mg/dL (8.6-10.3); Carbon Dioxide 24 mEq/L (23-29); Chloride 110 mEq/L (98-107); Glucose 104 mg/dL (70-105); Magnesium 1.6 mg/dL (1.6-2.6); Osmolality,Calculated 299 (280-300); Phosphorous 3.7 mg/dL (2.7-4.5); Sodium 142 mEq/L (136-145); eGFR For African Americans > 60 (> 60); eGFR For Non-African Americans > 60 (> 60)
[2021-08-29] MEDS: Budesonide/Formoterol 160/4.5 1 PUFF INH IH SCH ×2 (07:59→19:58)
[2021-08-29] MEDS: Insulin LISPRO 300 UNITS/3 ML VIAL SUBQ SCH ×4 (09:46→20:27)
[2021-08-29] MEDS: Aspirin 81 MG TAB.CHEW PO SCH (10:15)
[2021-08-29] MEDS: Fluticasone Propionate Nasal 50 MCG/SPRAY BOTTLE NS SCH (10:15)
[2021-08-29] MEDS: Loratadine 10 MG TABLET PO SCH (10:15)
[2021-08-29] MEDS: Metoprolol XL (24 HR) Succ 25 MG TAB.ER.24H PO SCH (10:15)
[2021-08-29] MEDS: allopurinoL 300 MG TABLET PO SCH (10:15)
[2021-08-29] MEDS: Chlorhexidine Rinse 15 ML MOUTHWASH MM SCH ×2 (10:15→20:26)
[2021-08-29] MEDS: polyethylene glycoL 3350 17 GM POWD.PACK PO SCH (10:15)
[2021-08-29] MEDS: *HR* Amiodarone 200 MG TABLET PO SCH (10:15)
[2021-08-29] MEDS: Apixaban 5 MG TABLET PO SCH ×2 (10:15→20:26)
[2021-08-29] MEDS: QUEtiapine Fumarate 25 MG TABLET PO SCH (20:27)
[2021-08-30] MEDS: *HR* OxyCODONE Immed Rel 5 MG TABLET PO PRN ×3 (06:00→15:55)
[2021-08-30] MEDS: Budesonide/Formoterol 160/4.5 1 PUFF INH IH SCH ×2 (08:07→20:13)
[2021-08-30] MEDS: Insulin LISPRO 300 UNITS/3 ML VIAL SUBQ SCH ×3 (08:54→16:33)
[2021-08-30] MEDS: Chlorhexidine Rinse 15 ML MOUTHWASH MM SCH ×2 (09:00→20:15)
[2021-08-30] MEDS: *HR* LORazepam 0.5 MG TABLET PO PRN (09:00)
[2021-08-30] MEDS: Metoprolol XL (24 HR) Succ 25 MG TAB.ER.24H PO SCH (09:00)
[2021-08-30] MEDS: *HR* Amiodarone 200 MG TABLET PO SCH (09:00)
[2021-08-30] MEDS: Apixaban 5 MG TABLET PO SCH ×2 (09:00→20:22)
[2021-08-30] MEDS: allopurinoL 300 MG TABLET PO SCH (09:00)
[2021-08-30] MEDS: Aspirin 81 MG TAB.CHEW PO SCH (09:00)
[2021-08-30] MEDS: Loratadine 10 MG TABLET PO SCH (09:00)
[2021-08-30] MEDS: Fluticasone Propionate Nasal 50 MCG/SPRAY BOTTLE NS SCH (09:01)
[2021-08-30] MEDS: polyethylene glycoL 3350 17 GM POWD.PACK PO SCH (09:01)
[2021-08-30 09:34] LABS: Basophils # 0.1 K/mcL (0.0-0.2); Basophils % 0.8 %; Eosinophils # 0.6 K/mcL (0.0-0.6); Eosinophils % 7.2 %; Hematocrit 36.4 % (35.3-44.9); Hemoglobin 10.7 g/dL (11.5-15.4); Lymphocytes # 1.7 K/mcL (0.6-4.6); Lymphocytes % 20.1 %; Mean Corpuscular HGB Conc 29.4 g/dL (31.6-35.5); Monocytes # 0.6 K/mcL (0.0-1.3); Monocytes % 6.5 %; Neutrophils # 5.6 K/mcL (1.6-8.9); Platelet Count 192 K/mcL (140-400); Red Blood Count 3.57 M/mcL (3.82-4.97); Red Cell Distribution Width 16.5 % (11.5-14.5); Segmented Neutrophils % 64.4 %; White Blood Count 8.7 K/mcL (4.3-11.1)
[2021-08-30 09:51] LABS: BUN/Creatinine Ratio 25 (6-26); Blood Urea Nitrogen 21 mg/dL (8-23); Calcium 9.6 mg/dL (8.6-10.3); Carbon Dioxide 25 mEq/L (23-29); Chloride 110 mEq/L (98-107); Glucose 163 mg/dL (70-105); Magnesium 1.7 mg/dL (1.6-2.6); Osmolality,Calculated 307 (280-300); Phosphorous 3.6 mg/dL (2.7-4.5); Potassium 3.9 mEq/L (3.5-5.1); Sodium 145 mEq/L (136-145); eGFR For African Americans > 60 (> 60); eGFR For Non-African Americans > 60 (> 60)
[2021-08-30] MEDS: QUEtiapine Fumarate 25 MG TABLET PO SCH (20:22)
[2021-08-31] MEDS: *HR* LORazepam 0.5 MG TABLET PO PRN ×2 (01:16→11:43)
[2021-08-31] MEDS: *HR* OxyCODONE Immed Rel 5 MG TABLET PO PRN ×5 (01:16→22:48)
[2021-08-31 02:11] LABS: Basophils # 0.1 K/mcL (0.0-0.2); Basophils % 0.7 %; Eosinophils # 0.6 K/mcL (0.0-0.6); Eosinophils % 7.5 %; Hematocrit 33.8 % (35.3-44.9); Hemoglobin 10.1 g/dL (11.5-15.4); Immature Granulocytes % 1.6 % (0-4); Lymphocytes % 24.5 %; Mean Corpuscular HGB Conc 29.9 g/dL (31.6-35.5); Mean Corpuscular Hemoglobin 30.4 pg (28.0-33.3); Mean Corpuscular Volume 101.8 fL (83.0-100.0); Mean Platelet Volume 10.5 fL (9.4-12.4); Monocytes # 0.7 K/mcL (0.0-1.3); Monocytes % 8.5 %; Neutrophils # 4.6 K/mcL (1.6-8.9); Platelet Count 187 K/mcL (140-400); Red Blood Count 3.32 M/mcL (3.82-4.97); Red Cell Distribution Width 16.6 % (11.5-14.5); Segmented Neutrophils % 57.2 %
[2021-08-31 02:41] LABS: BUN/Creatinine Ratio 31 (6-26); Blood Urea Nitrogen 22 mg/dL (8-23); Calcium 9.1 mg/dL (8.6-10.3); Carbon Dioxide 23 mEq/L (23-29); Chloride 108 mEq/L (98-107); Glucose 97 mg/dL (70-105); Magnesium 1.8 mg/dL (1.6-2.6); Osmolality,Calculated 295 (280-300); Phosphorous 3.6 mg/dL (2.7-4.5); Potassium 4.2 mEq/L (3.5-5.1); Sodium 141 mEq/L (136-145); eGFR For African Americans > 60 (> 60); eGFR For Non-African Americans > 60 (> 60)
[2021-08-31] MEDS: Budesonide/Formoterol 160/4.5 1 PUFF INH IH SCH ×2 (07:35→20:40)
[2021-08-31] MEDS: Chlorhexidine Rinse 15 ML MOUTHWASH MM SCH (09:34)
[2021-08-31] MEDS: *HR* Amiodarone 200 MG TABLET PO SCH (09:34)
[2021-08-31] MEDS: Aspirin 81 MG TAB.CHEW PO SCH (09:34)
[2021-08-31] MEDS: Loratadine 10 MG TABLET PO SCH (09:34)
[2021-08-31] MEDS: Fluticasone Propionate Nasal 50 MCG/SPRAY BOTTLE NS SCH (09:34)
[2021-08-31] MEDS: Apixaban 5 MG TABLET PO SCH ×2 (09:34→20:12)
[2021-08-31] MEDS: Metoprolol XL (24 HR) Succ 25 MG TAB.ER.24H PO SCH (09:34)
[2021-08-31] MEDS: polyethylene glycoL 3350 17 GM POWD.PACK PO SCH (09:34)
[2021-08-31] MEDS: allopurinoL 300 MG TABLET PO SCH (09:34)
[2021-08-31] MEDS: Insulin LISPRO 300 UNITS/3 ML VIAL SUBQ SCH ×5 (09:35→22:44)
[2021-08-31] MEDS: Acetaminophen 325 MG TABLET PO PRN (13:35)
[2021-08-31] MEDS: QUEtiapine Fumarate 25 MG TABLET PO SCH (20:12)
[2021-08-31] MEDS: Melatonin 3 MG TABLET PO PRN (22:48)
[2021-09-01] MEDS: *HR* OxyCODONE Immed Rel 5 MG TABLET PO PRN ×4 (05:17→23:49)
[2021-09-01 06:00] LABS: Basophils # 0.1 K/mcL (0.0-0.2); Basophils % 0.7 %; Eosinophils # 0.5 K/mcL (0.0-0.6); Eosinophils % 7.2 %; Hematocrit 33.5 % (35.3-44.9); Hemoglobin 9.9 g/dL (11.5-15.4); Immature Granulocytes % 1.6 % (0-4); Lymphocytes # 1.9 K/mcL (0.6-4.6); Lymphocytes % 26.3 %; Mean Corpuscular HGB Conc 29.6 g/dL (31.6-35.5); Mean Corpuscular Hemoglobin 30.1 pg (28.0-33.3); Mean Corpuscular Volume 101.8 fL (83.0-100.0); Mean Platelet Volume 10.4 fL (9.4-12.4); Monocytes # 0.7 K/mcL (0.0-1.3); Monocytes % 9.7 %; Neutrophils # 3.9 K/mcL (1.6-8.9); Platelet Count 177 K/mcL (140-400); Red Blood Count 3.29 M/mcL (3.82-4.97); Red Cell Distribution Width 16.3 % (11.5-14.5); Segmented Neutrophils % 54.5 %; White Blood Count 7.1 K/mcL (4.3-11.1)
[2021-09-01] MEDS: Budesonide/Formoterol 160/4.5 1 PUFF INH IH SCH ×2 (07:38→20:10)
[2021-09-01 08:10] LABS: BUN/Creatinine Ratio 28 (6-26); Blood Urea Nitrogen 20 mg/dL (8-23); Calcium 9.2 mg/dL (8.6-10.3); Carbon Dioxide 23 mEq/L (23-29); Chloride 110 mEq/L (98-107); Glucose 96 mg/dL (70-105); Magnesium 1.7 mg/dL (1.6-2.6); Osmolality,Calculated 294 (280-300); Phosphorous 4.3 mg/dL (2.7-4.5); Potassium 4.3 mEq/L (3.5-5.1); Sodium 141 mEq/L (136-145); eGFR For African Americans > 60 (> 60); eGFR For Non-African Americans > 60 (> 60)
[2021-09-01] MEDS: Loratadine 10 MG TABLET PO SCH (09:45)
[2021-09-01] MEDS: Acetaminophen 325 MG TABLET PO PRN ×2 (09:45→17:43)
[2021-09-01] MEDS: Apixaban 5 MG TABLET PO SCH ×2 (09:46→20:39)
[2021-09-01] MEDS: allopurinoL 300 MG TABLET PO SCH (09:46)
[2021-09-01] MEDS: Metoprolol XL (24 HR) Succ 25 MG TAB.ER.24H PO SCH (09:46)
[2021-09-01] MEDS: Aspirin 81 MG TAB.CHEW PO SCH (09:46)
[2021-09-01] MEDS: Insulin LISPRO 300 UNITS/3 ML VIAL SUBQ SCH ×4 (09:46→20:40)
[2021-09-01] MEDS: *HR* Amiodarone 200 MG TABLET PO SCH (09:46)
[2021-09-01] MEDS: Fluticasone Propionate Nasal 50 MCG/SPRAY BOTTLE NS SCH (09:52)
[2021-09-01] MEDS: polyethylene glycoL 3350 17 GM POWD.PACK PO SCH (09:52)
[2021-09-01] MEDS: Saline Nasal Spray 44 ML BOTTLE NS PRN (09:52)
[2021-09-01] MEDS ORDERED: *HR* LORazepam 0.5 MG TABLET PO ONE (12:52)
[2021-09-01] MEDS: QUEtiapine Fumarate 25 MG TABLET PO SCH (20:39)
[2021-09-02] MEDS: *HR* OxyCODONE Immed Rel 5 MG TABLET PO PRN ×3 (05:19→16:45)
[2021-09-02 06:12] LABS: Basophils # 0.1 K/mcL (0.0-0.2); Basophils % 0.9 %; Eosinophils # 0.4 K/mcL (0.0-0.6); Eosinophils % 5.9 %; Hematocrit 36.1 % (35.3-44.9); Hemoglobin 10.5 g/dL (11.5-15.4); Immature Granulocytes % 1.5 % (0-4); Lymphocytes # 1.8 K/mcL (0.6-4.6); Lymphocytes % 26.4 %; Mean Corpuscular HGB Conc 29.1 g/dL (31.6-35.5); Mean Corpuscular Hemoglobin 30.3 pg (28.0-33.3); Mean Platelet Volume 10.5 fL (9.4-12.4); Monocytes # 0.6 K/mcL (0.0-1.3); Monocytes % 8.8 %; Neutrophils # 3.7 K/mcL (1.6-8.9); Platelet Count 173 K/mcL (140-400); Red Blood Count 3.47 M/mcL (3.82-4.97); Red Cell Distribution Width 16.2 % (11.5-14.5); Segmented Neutrophils % 56.5 %; White Blood Count 6.6 K/mcL (4.3-11.1)
[2021-09-02 06:46] LABS: BUN/Creatinine Ratio 27 (6-26); Blood Urea Nitrogen 19 mg/dL (8-23); Calcium 9.3 mg/dL (8.6-10.3); Carbon Dioxide 23 mEq/L (23-29); Chloride 110 mEq/L (98-107); Glucose 88 mg/dL (70-105); Magnesium 1.6 mg/dL (1.6-2.6); Osmolality,Calculated 296 (280-300); Phosphorous 4.1 mg/dL (2.7-4.5); Potassium 3.9 mEq/L (3.5-5.1); Sodium 142 mEq/L (136-145); eGFR For African Americans > 60 (> 60); eGFR For Non-African Americans > 60 (> 60)
[2021-09-02] MEDS: Insulin LISPRO 300 UNITS/3 ML VIAL SUBQ SCH ×3 (07:11→16:00)
[2021-09-02] MEDS: Budesonide/Formoterol 160/4.5 1 PUFF INH IH SCH (07:34)
[2021-09-02] MEDS: Acetaminophen 325 MG TABLET PO PRN (08:03)
[2021-09-02] MEDS: *HR* Amiodarone 200 MG TABLET PO SCH (08:57)
[2021-09-02] MEDS: allopurinoL 300 MG TABLET PO SCH (08:57)
[2021-09-02] MEDS: Metoprolol XL (24 HR) Succ 25 MG TAB.ER.24H PO SCH (08:58)
[2021-09-02] MEDS: Loratadine 10 MG TABLET PO SCH (08:58)
[2021-09-02] MEDS: Apixaban 5 MG TABLET PO SCH (08:58)
[2021-09-02] MEDS: Aspirin 81 MG TAB.CHEW PO SCH (08:58)
[2021-09-02] MEDS: Fluticasone Propionate Nasal 50 MCG/SPRAY BOTTLE NS SCH (08:59)
[2021-09-02] MEDS: polyethylene glycoL 3350 17 GM POWD.PACK PO SCH (08:59)
[2021-09-02 15:58] VITALS: BP 137/84; PULSE 88; TEMP 97.9; O2SAT 95
== END 2021-09-02 17:20 | DRG 483 ==
LOC: 4WAOSI 16:11 → EMEROOARM 16:11 → SUATTDRO 22:34 → 4WAOSI 23:20 → SUATTDRO 07-22 19:59 → 2NNU 07-24 20:09 → 4WAOSI 07-25 12:48 → ICNU 07-27 17:47 → 2NNU 08-04 20:28 → 2NENU 08-05 20:25
PROVIDERS: ADMIT Internal Medicine; ATTEND Internal Medicine